=== PATIENT | male | born 1950 | race Caucasian/White ===

== ENCOUNTER 2017-10-31 10:26 | Inpatient (IN) | payer MEDICARE, OTHER ==
[2017-10-31] MEDS ORDERED: ALPRAZolam 0.5 MG TAB PO PRN (10:58)
[2017-10-31] MEDS ORDERED: Diltiazem 125 MG in Sodium Chloride 0.9% 100 ML IVPB SCH (11:00)
[2017-10-31 11:09] VITALS: BMI 34.5
[2017-10-31 11:52] LABS: #Basophils 0.1 thou/uL (0.0-0.2); #Eosinphils 0.4 thou/uL (0.0-0.7); #Lymphocytes 2.4 thou/uL (1.20-3.40); #Monocytes 0.8 thou/uL (0.11-0.59); #Neutrophils 2.9 thou/uL (1.40-6.50); %Basophils 1.2 % (0.0-1.0); %Eosinophils 5.4 % (0.0-10.0); %Lymphocytes 36.3 % (21.0-51.0); %Monocytes 12.6 % (0.0-10.0); %Neutrophils 44.5 % (42.0-75.0); Mean Corpuscular HGB CONC 32.8 g/dL (32.0-36.0); Mean Corpuscular Hemoglobin 29.5 pg (27.0-31.0); Mean Corpuscular Volume 90.2 fl (80.0-94.0); Mean Platelet Volume 7.7 fL (7.4-10.4); Platelet Count 195 thou/uL (130-400); RBC Distribution Width 12.9 % (11.5-14.5); Red Blood Cell (RBC) Count 5.07 mill/uL (4.70-6.10); White Blood Cell (WBC) Count 6.6 thou/uL (4.8-10.8)
[2017-10-31 12:16] LABS: ALT (SGPT) 15 U/L (8-55); AST (SGOT) 18 U/L (5-34); Albumin 4.1 g/dL (3.4-4.8); Alkaline Phosphatase 75 U/L (40-150); Anion Gap 14 mmol/L (10-20); BUN (Urea Nitrogen) 17 mg/dL (8.4-25.7); Bilirubin, Total 0.5 mg/dL (0.2-1.2); Calc. Creatinine Clearance 115 mL/min (70-130); Calcium 9.3 mg/dL (7.8-10.44); Carbon Dioxide 25 mmol/L (23-31); Chloride 108 mmol/L (98-107); Estimated GFR-MDRD 66; Globulin 2.9 g/dL (2.4-3.5); Glucose 98 mg/dL (80-115); Sodium 142 mmol/L (136-145)
[2017-10-31 12:19] LABS: CKMB 0.7 ng/mL (0-6.6); Troponin I 0.014 ng/mL (< 0.028)
[2017-10-31] MEDS: Propafenone HCl 150 MG TAB PO SCH ×2 (15:46→19:32)
[2017-10-31] MEDS: Carvedilol 3.125 MG TAB PO SCH (19:32)
[2017-10-31] MEDS: Pravastatin Sodium 20 MG TAB PO SCH (19:32)
[2017-10-31] MEDS: Apixaban 5 MG TAB PO SCH (19:32)
--- NOTE | 2017-11-01 00:04 | HP ---
HISTORY: Jann Parks is a 66-year-old white male that I initially evaluated in 04/2013. One month prior to that, he had wheezing and increased cough. Chest x -ray was unremarkable. He was placed on a Medrol Dosepak and that apparently improved the situation. He then started to notice episodes of PND, increased dyspnea on exertion, and on the day prior to admission that his heart was beating very rapidly. He had never noticed that before. He came to the emergency room and was found to be in atrial fibrillation with fast ventricular response. Echocardiogram revealed a difficult study. There was severe left ventricular systolic dysfunction with an ejection fraction of 10%-15%, biatrial enlargement, markedly dilated left ventricle, and tricuspid regurgitation. His CK-MB and troponin I were normal. BNP was 756.6. Also, on the monitor, he had complex ventricular ectopy with episodes of ventricular triplets. With his ventricular ectopy, it was felt that an ischemic cardiomyopathy needed to be ruled out. He underwent cardiac catheterization, which revealed severe left ventricular dysfunction with an ejection fraction of 15%-20% and normal coronary arteries. After catheterization, he was restarted on Lovenox and Coumadin. Also, he was loaded with amiodarone. Then, on 05/08/2017, he underwent transesophageal echo, which revealed no intracardiac thrombus. This was followed by electrical cardioversion with 200 joules, returned to normal sinus rhythm. He was then discharged once his INR was greater than 2.0. He continued to remain in normal sinus rhythm and in 08/2013, underwent repeat echo, which revealed ejection fraction of 50%-55%. His digoxin was stopped at that time. He underwent 30-day monitor in 11/2013 with no a fib and the decision was made to stop his Coumadin at that time, but he continued on the amiodarone. In 11/2014, amiodarone was reduced to 1/2 tablet daily. He also started to have muscle and joint pain, and pravastatin was held. This then was restarted at 1/2 of 40 mg tablet. He was found to have low TSH and it was felt that he was hyperthyroid and amiodarone was discontinued. This was in 06/2015. Three weeks later in 07/2015, he had a syncopal episode when he stood up. He was found to be in atrial fibrillation with rapid ventricular response. In the emergency room, he was given Cardizem, Lovenox, digoxin, metoprolol. CT angiogram was performed, which revealed no evidence of pulmonary embolism. He was placed on Multaq and Eliquis. Free T4 was 2.60, free T3 was 5.26, and TSH was less than 0.0025. He was placed on methimazole. He continued to remain hyperthyroid and the decision was made to wait until he was more euthyroid before repeating cardioversion. He returned on 10/06/2015 and underwent transesophageal echo, which revealed no evidence of intracardiac thrombus. Previous echo had shown ejection fraction of 55%-60%. With 200 joules, he returned to sinus rhythm. He was discharged later that same day on propafenone 150 t.i.d. He was switched to this due to development of dizziness with the Multaq. In 11/2015, he returned for followup and continued to be in normal sinus rhythm. He states that he had increased energy once he returned to sinus rhythm. Digoxin was then stopped at that time. His TSH was somewhat elevated. Methimazole dose was reduced to 5 mg daily. Methimazole dose was reduced to 1 /2 tablet daily and then discontinued and he has continued to remain euthyroid since that time. In October and in May 2017, he returned for followup, continued to be in sinus rhythm. He now returns stating that atrial fibrillation probably began on 10/27/2017. He can feel his heart beating rapidly. EKG in the office revealed atrial fibrillation with a rate of 130 per minute. It was felt that he needed to be admitted, anticoagulated, and propafenone dose increased and after loading with increased dose of propafenone to undergo repeat cardioversion. We also discussed that he may need ablation. He is not a candidate for amiodarone due to development of hyperthyroidism on amiodarone in the past. He agrees to admission. PAST MEDICAL HISTORY: Normal coronary arteries in 04/2016, nonischemic cardiomyopathy with ejection fraction of 10%-15%, ultimately increasing to 55%- 60%; he has undergone atrial fibrillation cardioversion in 04/2013 and in 2015; hypertension; hypercholesterolemia; dizziness with Multaq. OPERATIONS: Lumbar laminectomy. MEDICATIONS: Alprazolam 0.5 mg p.r.n., carvedilol 3.125 b.i.d., Eliquis 5 mg b.i.d., furosemide 40 mg q.a.m., lisinopril 10 mg q.a.m., loratadine 10 mg daily , multivitamin daily, KCl 10 mEq daily, pravastatin 20 at bedtime, propafenone 150 t.i.d. ALLERGIES: MULTAQ causes dizziness and AMIODARONE caused hyperthyroidism. SOCIAL HISTORY: He does not smoke. He occasionally has a beer. He is retired , working for [employer] in the past. FAMILY HISTORY: Mother of congestive heart failure. Father had a stroke. No family history of coronary artery disease. REVIEW OF SYSTEMS: Twelve-point review of systems is otherwise unremarkable. PHYSICAL EXAMINATION: VITAL SIGNS: 129/69, pulse of 80 and irregularly irregular with episodes of tachycardia. HEENT: PERRL. NECK: Supple. CHEST: Clear. CARDIAC: S1 and S2 are normal without any S3, S4, or murmurs. ABDOMEN: Normal bowel sounds without tenderness or organomegaly. EXTREMITIES: Revealed no clubbing, cyanosis, or edema. NEUROLOGIC: Grossly intact. SKIN: Warm and dry. LABORATORY DATA: EKG reveals atrial fibrillation with fast ventricular response of 130 per minute. Blood work is pending. IMPRESSION: 1. Recurrence of atrial fibrillation, probably on 10/27/2017. 2. History of previous electrical cardioversions in 04/2013 and 09/2015. 3. History of hyperthyroidism with amiodarone. 4. Dizziness with Multaq. 5. Nonischemic cardiomyopathy with ejection fraction improving from 10%-15% to 50%-55%. 6. Hypertension. 7. Hypercholesterolemia. PLAN: Mr. Parks will be admitted and will be placed on Eliquis 5 mg b.i.d. and propafenone dose will be increased to 225 mg t.i.d. After loading with this, consideration will be given to transesophageal echo and repeat electrical cardioversion. Echo will be repeated to reassess LV function. He certainly may require ablation in the future. MTDD
[2017-11-01] MEDS: Carvedilol 3.125 MG TAB PO SCH (06:19)
[2017-11-01] MEDS: Propafenone HCl 150 MG TAB PO SCH ×2 (06:19→20:19)
[2017-11-01] MEDS: Multivit, Therapeutic 1 TAB PO SCH (09:09)
[2017-11-01] MEDS: Furosemide 40 MG TAB PO SCH (09:09)
[2017-11-01] MEDS: Lisinopril 10 MG TAB PO SCH (09:09)
[2017-11-01] MEDS: Potassium Chloride 10 MEQ TAB PO SCH (09:09)
[2017-11-01] MEDS: Apixaban 5 MG TAB PO SCH ×2 (09:09→20:19)
[2017-11-01] MEDS ORDERED: Diltiazem 125 MG in Sodium Chloride 0.9% 100 ML IVPB PRN (19:15)
[2017-11-01] MEDS: Pravastatin Sodium 20 MG TAB PO SCH (20:19)
[2017-11-01] MEDS: Carvedilol 6.25 MG TAB PO SCH (20:19)
[2017-11-02] MEDS: Propafenone HCl 150 MG TAB PO SCH ×2 (05:28→18:33)
--- NOTE | 2017-11-02 08:16 | PDOC.CTH ---
<DamienherminioMaribell - Last Filed: 11/02/17 08:13> Cardiology Progress Note - Subjective EP progress note: Patient seen and evaluated. No new cardiac concerns or complaints. Remains NPO for DCCV today. No heart racing, palpitations, or dizziness. Briefly on IV cardizem gtt overnight, now off. - Objective Vital Signs Temp Pulse Resp BP Pulse Ox 11/02/17 07:16 97.0 F L 74 17 140/71 97 11/02/17 04:00 97.5 F L 72 18 110/69 98 Weight 269 lb 11.2 oz 11/01/17 11/02/17 11/03/17 06:59 06:59 06:59 Intake Total 630 1080 Output Total 600 2650 Balance 30 -1570 - Physical Examination General/Neuro: alert & oriented x3, NAD Neck: carotid US brisk, no JVD present Lungs: CTA, unlabored respirations Heart: RRR Abdomen: no HSM, NT/ND, soft - Telemetry Telemetry Rhythm: Atypical flu vs coarse AF - Labs Result Diagrams: 10/31/17 11:43 10/31/17 11:43 Troponin/CKMB CK-MB (CK-2) 0.7 ng/mL (0-6.6) 10/31/17 11:43 Troponin I 0.014 ng/mL (< 0.028) 10/31/17 11:43 - Assessment/Plan 1. Atrial fibrillation vs atypical flutter with RVR, rates now controlled. Off cardizem gtt. Increased coreg to 6.25mg BID and resumed propafenone. No missed doses of Eliquis. Discussed PVAI, which will be scheduled as an outpatient. 2. CHADS-VASC of 2 for history of heart failure and hypertension. Continue oral anticoagulation on Eliquis. Anticipate discharge after cardioversion today. Will schedule for PVAI as oupatient. <Micky Felix - Last Filed: 11/02/17 17:00> Cardiology Progress Note - Objective Vital Signs Temp Pulse Resp BP BP Pulse Ox 11/02/17 12:00 97.2 F L 72 18 148/74 H 99 11/02/17 11:23 142/76 H 11/02/17 07:16 97.0 F L 74 17 140/71 97 Weight 269 lb 11.2 oz 11/01/17 11/02/17 11/03/17 06:59 06:59 06:59 Intake Total 630 1080 Output Total 600 2650 Balance 30 -1570 - Labs Result Diagrams: 10/31/17 11:43 10/31/17 11:43 Troponin/CKMB CK-MB (CK-2) 0.7 ng/mL (0-6.6) 10/31/17 11:43 Troponin I 0.014 ng/mL (< 0.028) 10/31/17 11:43 Attending Addendum - Attending Addendum Date/Time: 11/02/17 1700 I personally evaluated the patient and discussed the management with Ms. Quezadaherminio. I agree with the History, Examination, Assessment and Plan documented above with any addition or exceptions noted below.
--- NOTE | 2017-11-02 09:13 | CON ---
DATE OF CONSULTATION: 11/01/2017 REFERRING PHYSICIAN: Dr. Armando Valdes REASON FOR CONSULTATION: Drug refractory atrial fibrillation. CHIEF COMPLAINT: Atrial fibrillation with RVR. HISTORY OF PRESENT ILLNESS: Mr. Parks is a very pleasant 66-year-old male who has been a longstandin g patient of Dr. Valdes's for atrial fibrillation. He was originally diagnosed with atrial fibrill ation in 04/2013 when he presented to the emergency room. At that time, he was also found to have se ana left ventricular systolic dysfunction with an EF of 10-15%, biatrial enlargement, dilated left v entricle, as well as tricuspid regurgitation. He underwent left heart catheterization to rule out is chemic cardiomyopathy and normal coronary arteries were found. At that time, he was placed on warfar in and amiodarone. A repeat echocardiogram in 08/2013 revealed a recovered ejection fraction of 50-5 5%. He then wore a 30-day monitor which did not reveal any atrial fibrillation and he was taken off warfarin and amiodarone was reduced. In 06/2015 it was found that his TSH was extremely low and he w as taken off amiodarone for his hyperthyroidism. The following month, unfortunately, he went back in to atrial fibrillation with RVR and was placed on Multaq and Eliquis at that time. His TSH was negli gible at 0.0025 at that time and cardioversion was postponed until he was more euthyroid. A cardiove rsion with CYNTHIA was performed in 09/2015 and he successfully converted to sinus rhythm. However, he w as not tolerating the Multaq very well and was having a substantial dizziness while on this medicatio n. He was changed to propafenone 150 mg t.i.d. Propafenone has helped him in sinus rhythm successfu lly for some time; however, unfortunately he feels that on 10/27/2017 of this year, he went back into atrial fibrillation. He went to Dr. Valdes's office on the and was found to be in atrial fib rillation, RVR with heart rates in the 130 range. He was sent to the hospital, at which point we janay e consulted. Today Mr. Parks feels well, but his heart rates continue to sustain well above 100. His propafenone was stopped. Although he does not experience significant heart racing or palpitations he is largely asymptomatic with his elevated heart rate. Even with minimal activity or walking to the restroom his heart rate will spike upwards of 170 beats per minute. He is tolerating Eliquis well for stroke pro phylaxis. He denies any chest pain, pressure, syncope or near syncope. He has not had any stroke or stroke like symptoms. Denies any swelling of the extremities or progressive heart failure symptoms. REVIEW OF SYSTEMS: Twelve point review of systems was conducted and is negative except that listed a terrie in the HPI. PAST MEDICAL HISTORY: 1. History of nonischemic cardiomyopathy with a previously reduced EF of 10-15% since recovered to 5 5-60%. 2. Hypertension. 3. Hypercholesterolemia. 4. Atrial fibrillation with 2 prior cardioversions, limited antiarrhythmic options. 5. Hyperthyroidism, in the setting of amiodarone therapy. 6. Lumbar fusion and laminectomy. ALLERGIES: No true drug allergies; however, side effects of dizziness from Multaq and complication o f hyperthyroidism from amiodarone. HOME MEDICATIONS: Alprazolam 0.5 mg as needed, carvedilol 3.125 mg b.i.d., Eliquis 5 mg b.i.d., furo semide 40 mg q.a.m., lisinopril 10 mg q.a.m., loratadine 10 mg daily, multivitamin daily, potassium c hloride 10 mEq daily, pravastatin 20 mg at bedtime, propafenone 150 mg t.i.d. SOCIAL HISTORY: Negative for tobacco use or illicit drug use. Positive for the occasional alcoholic beverage. He is retired from [employer]. FAMILY HISTORY: Mother positive for congestive heart failure. Father positive for cerebrovascular a ccident, negative for early onset of coronary artery disease or sudden cardiac . PHYSICAL EXAMINATION: VITAL SIGNS: Temperature 98.1 degrees Fahrenheit, pulse 110, respirations 18, oxygen saturation 99% on room air, blood pressure 156/84. GENERAL: This is a well-appearing, well-groomed and well-nourished male in no acute distre ss. He is alert and oriented. HEENT: Speech is clear. His affect is appropriate. Normocephalic, atraumatic. Sclerae are anicter ic. EOMs are intact. NECK: Supple without jugular venous distention. Carotids without bruit. CARDIOVASCULAR: Heart rate is regular, but rapid. No significant murmurs, rubs or gallops. His PMI is nonpalpable. EXTREMITIES: Extremities are warm and dry to touch without clubbing, cyanosis or edema. LUNGS: Clear to auscultation bilaterally without wheezes, crackles or rhonchi. ABDOMEN: Soft and nontender without palpable masses and there are positive bowel sounds noted throug hout. NEUROLOGIC: Grossly intact and nonfocal and gait was not assessed. DATABASE: Review of telemetry and EKG reveals what is likely an atypical flutter versus coarse atria l fibrillation sustaining at rates between 110 and 130 beats per minute. LABORATORY DATA: WBC 6.6, hemoglobin 15, hematocrit 45.7, platelet count 195. Chemistry: Sodium 14 2, potassium 5.0, chloride 108, carbon dioxide 25, BUN is 17, creatinine 1.12. TSH is 2.06. Echocardiogram on 11/01/2017, LV size mildly increased, moderately depressed LV systolic function wit h an EF 35-40%, left atrium mildly dilated. Moderate mitral regurgitation, mild aortic regurgitation , mild tricuspid regurgitation. ASSESSMENT AND PLAN: 1. Recurrent atrial arrhythmias refractory to multiple antiarrhythmic medications as well as cardiov ersion. Currently with rapid ventricular response despite propafenone. 2. Two prior cardioversions in 04/2013 and 09/2015. 3. History of hyperthyroidism in conjunction with amiodarone therapy. 4. Intolerance of Multaq with moderately severe dizziness. 5. Nonischemic cardiomyopathy, EF initially at 10-15% and then recovered 50-55% currently 35-40%. 6. Hypertension. 7. Elevated CHADS VASc score on Eliquis for stroke prophylaxis. PLAN: A long discussion was had with Mr. Parks and his regarding additional treatment options f or atrial fibrillation including pulmonary venous antrum isolation. This is a very reasonable option given the patient has been refractory to multiple antiarrhythmic treatments and limited options when it comes to these medications given his history of hyperthyroidism and intolerance of Multaq. We di scussed rate control versus continued antiarrhythmic therapy and attempting cardioversion prior to jean torres. At this point, the patient will resume propafenone and I will increase his carvedilol to im prove rate control and will attempt a cardioversion tomorrow prior to discharge. We will see him zander k as an outpatient to further discuss PVI however, he will be scheduled in the near future for ablati on. Thank you for allowing us to participate in the care of the patient.
[2017-11-02] MEDS: Carvedilol 6.25 MG TAB PO SCH (11:23)
[2017-11-02] MEDS: Lisinopril 10 MG TAB PO SCH (11:23)
--- NOTE | 2017-11-02 14:51 | PQF ---
CLINICAL DOCUMENTATION IMPROVEMENT CLARIFICATION FORM: ICD-10 Updated PLEASE DO AN ADDENDUM TO THE PROGRESS NOTE WITH ANY DOCUMENTATION UPDATES OR ADDITIONS AND CARRY THROUGH TO DC SUMMARY. THANK YOU. DATE: 11/02/17 ATTN: Shikha MAYES NP Please exercise your independent, professional judgment in responding to the clarification form. Clinical indicators are provided on the bottom of this form for your review Please check appropriate box(s): HEART FAILURE: A. TYPE: [ x ] Systolic / HFrEF [ ] Diastolic / HFpEF [ ] Combined Systolic / Diastolic B. ACUITY [ ] Acute [ ] Acute on Chronic [ ] Chronic [ x ] Other diagnosis history of non ischemic cardiomyopathy with recovered EF [ ] Unable to determine In addition, please specify: Present on Admission (POA): [ x ] Yes [ ] No [ ] Unable to determine For continuity of documentation, please document condition throughout progress notes and discharge summary. Thank You. CLINICAL INDICATORS - SIGNS / SYMPTOMS / LABS CARDIOLOGY PROGRESS NOTE 11/02: "CHADS-VASC OF 2 FOR HISTORY OF HEART FAILURE AND HYPERTENSION" RISKS: HYPERTENSION AFIB TREATMENT: LASIX (11/01-PRESENT) COREG (11/01/17) LISINOPRIL 11/01-PRESENT) TELEMETRY MONITORING (This form is maintained as a part of the permanent medical record) 2014 [employer]. All Rights Reserved [email or web address] Office: [phone] FESTUS
[2017-11-02] MEDS ORDERED: PROPOFOL 20 ML ONE (15:19)
[2017-11-02] MEDS ORDERED: PROPOFOL 200 MG/20 ML VIAL ONE (15:55)
[2017-11-02] MEDS ORDERED: Lidocaine 1% PF 5 ML VIAL ONE (15:55)
[2017-11-02] MEDS ORDERED: Hydrocortisone 1% Cream 30 GM TUBE ONE (16:47)
[2017-11-02] MEDS ORDERED: Acetaminophen 325 MG TAB PO PRN (17:22)
[2017-11-02] MEDS ORDERED: ALPRAZolam 0.5 MG TAB PO PRN (17:23)
[2017-11-02 17:24] VITALS: TEMP 97.4
[2017-11-02] MEDS ORDERED: Furosemide 40 MG TAB PO PRN (17:25)
[2017-11-02] MEDS: Apixaban 5 MG TAB PO SCH (18:30)
[2017-11-02] MEDS: Furosemide 40 MG TAB PO SCH (18:30)
[2017-11-02] MEDS: Multivit, Therapeutic 1 TAB PO SCH (18:30)
[2017-11-02] MEDS: Potassium Chloride 10 MEQ TAB PO SCH (18:30)
[2017-11-02 19:14] VITALS: BP 139/74
[2017-11-02] MEDS ORDERED: Carvedilol 3.125 MG TAB PO SCH (21:00)
[2017-11-02] MEDS ORDERED: Propafenone HCl 150 MG TAB PO SCH (21:00)
--- NOTE | 2017-11-02 22:20 | OP ---
DATE OF PROCEDURE: 11/02/2017 CARDIOVERSION REPORT REFERRING PHYSICIAN: Armando Valdes M.D. REASON FOR PROCEDURE: Mr. Parks is a 66-year-old male with a prior history of persistent atrial fibrillation with prior history of cardioversion and propafenone use. He underwent a cardioversion in the past. He though developed persistent atrial fibrillation, loaded with continue propafenone. He is considered for future pulmonary venous isolation procedure if our attempt with cardioversion restored sinus rhythm in the interim. The patient has been adequately anticoagulated with oral anticoagulants without a break. PROCEDURE: The patient received propofol per Anesthesia specialist for deep sedation. After adequate level of sedation achieved, a synchronized 100 joule and then a 200 joule shock failed to convert him back to sinus rhythm. Following that, a 360 joule shock was delivered, synchronized, which promptly converted him back to sinus rhythm. CONCLUSION: Successful cardioversion. PLAN: Continue propafenone for now and anticoagulation. Plan for outpatient PVAI ablation will be made. FESTUS
--- NOTE | 2017-11-03 01:06 | DIS ---
DISCHARGE DIAGNOSES: 1. Recurrence of atrial fibrillation, probably on 10/27/2017. 2. Status post cardioversion in 04/2013 and 09/2015. 3. Electrical cardioversion back to sinus rhythm by Dr. Felix. 4. History of hyperthyroidism with amiodarone. 5. Dizziness with Multaq. 6. Ejection fraction of 10%-15% initially, which improved to 55%-60% and now is 35%-40%. 7. Hypertension. 8. Hypercholesterolemia. 9. Normal coronary arteries in 04/2013. DISCHARGE MEDICATIONS: Acetaminophen 650 q.4 hours p.r.n., alprazolam 0.5 mg p.r.n., Eliquis 5 mg b. i.d., carvedilol 3.125 b.i.d., furosemide 40 mg daily, lisinopril 10 mg daily, multivitamin 1 daily, KCl 10 mEq daily, pravastatin 20 mg at bedtime, propafenone 150 mg q.i.d. DISCHARGE DISPOSITION: Arrangements will be made by Dr. Felix for outpatient pulmonary artery ablatio n for his atrial fibrillation. HOSPITAL COURSE: Mr. Parks came to the office on 10/31/2017 stating that he felt that his heart was racing since 10/27/2017. He was found to be in atrial fibrillation with fast ventricular response. He was admitted and his carvedilol dose was increased from 3.125 b.i.d. to 6.25 b.i.d. for better rat e control. Also, intermittently he received intravenous Cardizem drip. He underwent echocardiograph y, which revealed the study to be technically difficult. There was mild left ventricular enlargement , moderate left ventricular dysfunction with ejection fraction of 35%-40%, mild left atrial enlargeme nt, moderate mitral regurgitation, mild aortic regurgitation, and mild tricuspid regurgitation. With the fall in his ejection fraction, it was felt that propafenone at a higher dose long-term would not be better and he was seen by Dr. Felix for possible radiofrequency ablation. Dr. Felix did take him f or electrical cardioversion and once he was back in sinus rhythm, his carvedilol dose was reduced zander k to 3.125 b.i.d. Also, Dr. Felix wanted to increase propafenone to 150 mg q.i.d.
== END 2017-11-02 19:14 | disposition home or self-care (01) | DRG 309 ==
LOC: 2NO 10:26
PROVIDERS: ADMIT Internal Medicine Cardiovascular Disease; ATTEND Internal Medicine Cardiovascular Disease
PROC: 5A2204Z Restoration of Cardiac Rhythm, Single (ICD-10-PCS; principal; 2017-11-02)
DX: I48.1 Persistent atrial fibrillation (principal); I50.22 Chronic systolic (congestive) heart failure; I42.8 Other cardiomyopathies; I11.0 Hypertensive heart disease with heart failure; E78.5 Hyperlipidemia, unspecified; Z79.899 Other long term (current) drug therapy; Z79.01 Long term (current) use of anticoagulants; Z88.8 Allergy status to other drugs, medicaments and biological substances; E03.9 Hypothyroidism, unspecified
CPT/HCPCS: 36415; 80053; 82553; 84443; 84484; 85025; 92960; 93306; A4216; J2001; J2704; J7050

== ENCOUNTER 2017-11-09 11:08 | Outpatient (CLI) | payer MEDICARE, OTHER ==
[2017-11-09 12:25] LABS: Hemoglobin 14.9 g/dL (14.0-18.0); Mean Corpuscular HGB CONC 33.9 g/dL (32.0-36.0); Mean Corpuscular Hemoglobin 30.1 pg (27.0-31.0); Mean Corpuscular Volume 88.9 fl (80.0-94.0); Mean Platelet Volume 8.3 fL (7.4-10.4); Platelet Count 199 thou/uL (130-400); RBC Distribution Width 12.6 % (11.5-14.5); Red Blood Cell (RBC) Count 4.93 mill/uL (4.70-6.10); White Blood Cell (WBC) Count 6.5 thou/uL (4.8-10.8)
[2017-11-09 12:29] LABS: INR-International Normal Ratio 1.2; Prothrombin Time 15.7 SEC (12.0-14.7)
[2017-11-09 12:30] LABS: PTT 32.2 SEC (22.9-36.1)
[2017-11-09 13:02] LABS: Anion Gap 13 mmol/L (10-20); BUN (Urea Nitrogen) 20 mg/dL (8.4-25.7); Calc. Creatinine Clearance 0 mL/min (70-130); Calcium 9.7 mg/dL (7.8-10.44); Carbon Dioxide 25 mmol/L (23-31); Chloride 104 mmol/L (98-107); Estimated GFR-MDRD 65; Glucose 91 mg/dL (80-115); Potassium 4.8 mmol/L (3.5-5.1); Sodium 137 mmol/L (136-145)
--- NOTE | 2017-11-09 16:48 | EKG ---
Test Reason : Blood Pressure : / mmHG Vent. Rate : 054 BPM Atrial Rate : 054 BPM P-R Int : 200 ms QRS Dur : 108 ms QT Int : 424 ms P-R-T Axes : 057 -11 009 degrees QTc Int : 402 ms Sinus bradycardia Minimal voltage criteria for LVH, may be normal variant Borderline ECG When compared with ECG of 08-NOV-2016 03:07, Sinus rhythm has replaced Junctional rhythm Confirmed by DR. Braydon MARTIN ([id number]) on 11/09/2017 4:48:16 PM Referred By: ROSA Confirmed By:DR. Braydon MARTIN
== END 2017-11-09 11:09 | disposition home or self-care (01) ==
LOC: LABBT 11:08
PROVIDERS: ATTEND Internal Medicine Cardiovascular Disease
DX: Z01.818 Encounter for other preprocedural examination (principal); I48.91 Unspecified atrial fibrillation
CPT/HCPCS: 80048; 85027; 85610; 85730; 93005; 93010

== ENCOUNTER 2017-11-16 08:23 | Outpatient (CLI) | payer MEDICARE, OTHER ==
[2017-11-16] MEDS ORDERED: ISOVUE-370 76%-LOCM 1 ML ONE (13:08)
== END 2017-11-16 08:24 | disposition home or self-care (01) ==
LOC: BICCT 08:23
PROVIDERS: ATTEND Internal Medicine Cardiovascular Disease
DX: I48.91 Unspecified atrial fibrillation (principal)
CPT/HCPCS: 71275

== ENCOUNTER 2017-11-19 05:46 | Observation (INO) | payer MEDICARE, OTHER ==
[2017-11-19] MEDS ORDERED: Lidocaine 1% (PF) 30 ML VIAL ONE (06:55)
[2017-11-19] MEDS ORDERED: Heparin 10,000 UNITS/1 ML VIAL ONE ×3 (06:55→10:53)
[2017-11-19] MEDS ORDERED: Promethazine HCl 25 MG/ML VIAL ONE (07:09)
[2017-11-19] MEDS ORDERED: Phenylephrine HCL 10 MG/ML VIAL ONE (07:09)
[2017-11-19] MEDS ORDERED: Ondansetron HCl/PF 4 MG/2 ML Vial ONE ×2 (07:09→11:39)
[2017-11-19] MEDS ORDERED: Ondansetron HCl/PF 4 MG/2 ML Vial IVP PRN ×2 (07:22→13:50)
[2017-11-19] MEDS ORDERED: Fentanyl 100 MCG/2 ML VIAL ONE ×3 (08:06→14:59)
[2017-11-19] MEDS ORDERED: Heparin 25,000 units/D5W 500 ML ONE (08:55)
[2017-11-19] MEDS ORDERED: Protamine Sulfate 50 MG/5 ML VIAL ONE (08:56)
[2017-11-19] MEDS ORDERED: Furosemide 40 MG/4 ML VIAL ONE (08:56)
[2017-11-19] MEDS ORDERED: Isoproterenol 0.2 MG/1 ML AMP ONE (10:53)
[2017-11-19] MEDS ORDERED: Dexamethasone 20 MG/5 ML VIAL ONE (11:39)
[2017-11-19] MEDS ORDERED: Heparin 30,000 units/30 ml VIAL ONE (11:39)
[2017-11-19] MEDS ORDERED: PROPOFOL 200 MG/20 ML VIAL ONE (11:39)
[2017-11-19] MEDS ORDERED: Glycopyrrolate 0.2 MG/ML 5 ML SYRINGE ONE (11:39)
[2017-11-19] MEDS ORDERED: PHENYLEPHRINE-NS 100 MCG/ML 10 ML SYRINGE ONE (11:39)
[2017-11-19] MEDS ORDERED: Atropine Sulfate 1 mg/1 ml Vial ONE (13:08)
[2017-11-19] MEDS ORDERED: Morphine Sulfate 2 MG/ML SYRINGE SLOW IVP PRN (13:50)
[2017-11-19] MEDS ORDERED: Promethazine HCl 25 MG/ML VIAL SLOW IVP PRN (13:50)
--- NOTE | 2017-11-19 14:16 | OP ---
DATE OF PROCEDURE: 11/19/2017 PROCEDURE: Electrophysiology study and radiofrequency ablation. REFERRING PHYSICIAN: Dr. Armando Valdes REASON FOR PROCEDURE: Mr. Parks is a 67-year-old male with history of paroxysmal atrial fibrillation, previously well suppressed with propafenone. More recently recurrent atrial fibrillation/flutter episodes are seen despite continued propofol administration. He also had a history of nonischemic cardiomyopathy, but improving LVEF is seen at 50-55%. worsen again to 35-40%. Here for radiofrequency ablation of atrial fibrillation. PROCEDURE: The patient received propofol per Anesthesia specialist. After adequate level of sedation achieved, the left and right femoral vein areas were prepped and draped and anesthetized using subcutaneous lidocaine and the left and right femoral veins were cannulated x2 each side. Following that, the left femoral vein, an 11 [place] sheath was inserted to allow for introducing an ice intracardiac echo catheter. This was used to monitor the transseptal procedure as well as hemodynamic monitoring afterwards. A Preface sheath was also induced on the left side and dual DECA catheter was inserted in the CS and the right atrial area. Following that, the right-sided venous access a transseptal sheath was introduced which was used to perform a transseptal puncture with ice catheter monitoring and through this a long sheath was placed, eventually the Agilis deflectable catheter was exchanged for this catheter. A second transseptal was also performed and the tracing transseptal was used to introduce the ThermoCool SF ST ablation catheter. Through the Agilis sheath a Pentaray mapping catheter was introduced and a 3-D map of the left atrium was created. Left common ostium was noted. Also IV heparin was started at the time of transseptal which was monitored with periodic ACT checks keeping the ACT over 350 targeted. Following that a left atrial map was performed and a pulmonary venous isolation procedure was performed, isolating all 4 pulmonary veins. Also the posterior was isolated and successful. Following that atrial flutter with cycle length of 3 milliseconds was tracked down to the right roof area and that area was ablated and the tachycardia terminated. Following that, further atrial flutter is seen which appeared to be originating from the left inferoseptal area and over the CS os roof and this area was also ablated and the tachycardia was terminated. At the end of the case, burst atrial pacing still induced atrial fibrillation which was a be eventually cardioverted back to sinus rhythm. Isuprel was administered andpresence of PV and posterior wall isolation was re- confirmed. With fluoroscopy, no change in the cardiac silhouette was noted. Also, the ice catheter was used to check for any effusion and none was found. At this point, catheter was pulled back to the right side. The protamine was administered 50 mg to reverse the IV heparin effect. After adequate ACT achieved, the sheaths were pulled in labor delivery rn. FINDINGS: Baseline cycle length 905 milliseconds, KY 200 milliseconds, QRS 105 , QT 450 milliseconds. Sinus node recovery time 1492 milliseconds, about 585 milliseconds corrected. AV Wenckebach cycle length was found to be 380 milliseconds. A total of 65 lesions were placed with total ablation x48 minutes. CONCLUSION: 1. Successful isolation of the posterior wall and all 4 pulmonary veins. 2. Left common pulmonary veins were seen. 3. Mapping and ablation of an atypical atrial tachycardia originating from the left posterior roof area. 4. Mapping and ablation of an atrial flutter originating from the CS roof area close to the interatrial septum. PLAN: Resume anticoagulation and propafenone short term. Consider weaning propafenone depending on the clinical response. MTDD
[2017-11-19] MEDS ORDERED: Diltiazem HCl 125 MG, Admixture Fee 1 EACH in Sodium Chloride 0.9% 100 ML IVPB PRN (17:40)
[2017-11-19] MEDS ORDERED: Propafenone HCl 150 MG TAB PO SCH (17:45)
[2017-11-19 18:20] VITALS: BMI 33.9
[2017-11-19] MEDS ORDERED: ALPRAZolam 0.5 MG TAB PO PRN (20:53)
[2017-11-19] MEDS ORDERED: Acetaminophen 325 MG TAB PO PRN (20:53)
[2017-11-19] MEDS ORDERED: Furosemide 40 MG TAB PO PRN (20:54)
[2017-11-19] MEDS ORDERED: Pravastatin Sodium 20 MG TAB PO SCH (21:00)
[2017-11-19] MEDS: Apixaban 5 MG TAB PO SCH (21:39)
[2017-11-19] MEDS: Sucralfate 1 GM TAB PO SCH (21:39)
[2017-11-19] MEDS: Propafenone HCl 150 MG TAB PO SCH ×2 (21:40→21:52)
[2017-11-19] MEDS: Carvedilol 3.125 MG TAB PO SCH (21:49)
[2017-11-20] MEDS: Sucralfate 1 GM TAB PO SCH ×2 (07:53→15:03)
[2017-11-20] MEDS: Propafenone HCl 150 MG TAB PO SCH ×4 (07:53→15:05)
[2017-11-20] MEDS: Apixaban 5 MG TAB PO SCH (08:32)
[2017-11-20] MEDS: Carvedilol 3.125 MG TAB PO SCH (08:40)
[2017-11-20] MEDS ORDERED: Potassium Chloride 10 MEQ TAB PO SCH (09:00)
[2017-11-20] MEDS ORDERED: Lisinopril 10 MG TAB PO SCH (09:00)
[2017-11-20] MEDS ORDERED: Multivit, Therapeutic 1 TAB PO SCH (09:00)
[2017-11-20 12:53] VITALS: BP 130/71; TEMP 97.8
[2017-11-20] MEDS ORDERED: Cepastat Lozenges 1 LOZ PO PRN (14:00)
[2017-11-20] MEDS ORDERED: Propafenone HCl 150 MG TAB PO SCH (15:00)
[2017-11-20 15:46] LABS: Bilirubin Negative (Negative); Blood, Urine Moderate (Negative); Clarity CLEAR (Clear); Glucose, Urine (Dipstick) Negative (Negative); Leukocyte Small (Negative); Nitrite Negative (Negative); Protein, Urine (Dipstick) Negative (Neg-Trace); Specific Gravity, Urine 1.012 (1.002-1.036); Urobilinogen 0.2 mg/dL (0.2-1.0)
[2017-11-20 15:48] LABS: Bacteria/HPF None Seen HPF (None Seen); Hyaline Casts/LPF 0-3 HYALINE CAST LPF (0-3 Hyaline); RBC/HPF 21-50 HPF (0-3); Squamous Epithelial None Seen HPF (0-3)
--- NOTE | 2017-11-20 19:46 | PRG ---
DISCHARGE NOTE DATE OF ADMISSION: 11/19/2017 DATE OF DISCHARGE: 11/20/2017 DATE OF PROCEDURE: 11/19/2017 PROCEDURE: Electrophysiology study and radiofrequency ablation. DIAGNOSIS: Drug refractory atrial fibrillation. HISTORY OF PRESENT ILLNESS: Mr. Parks is a 67-year-old male with history of paroxysmal atrial fibrillation, previously suppressed with propafenone. He has failed multiple antiarrhythmic medications in the past and propafenone has worked well until recently when he has required multiple cardioversions. He also has a history of ischemic cardiomyopathy with an improving EF. Currently, worsening EF most recently 35%-40%. He was admitted for an outpatient procedure , pulmonary venous isolation for his atrial fibrillation. This was performed on 11/19/2017 at which point he underwent isolation of all four pulmonary veins. Following that, an atrial flutter was tracked down to the right wrist area which was also ablated and terminated. Additional flutter was found to originate in the left inferior septal area and over the CSOS roof and this area also received ablation and the tachycardia was terminated. The patient eventually required cardioversion to restore sinus rhythm as a burst atrial pacing continued to induce atrial fibrillation. Total RF ablation time was 48 minutes, total 65 lesions placed. The patient had an uncomplicated postoperative recovery, but did have some atrial ectopy and irregular heart rhythms immediately postoperative. His propafenone was continued. PHYSICAL EXAMINATION: Today, he denies any heart racing, palpitations, chest pain or pressure, syncope or syncope, stroke or stroke-like symptoms. He does have some tenderness at his bilateral groin sites, however, is stable without hematoma or bleeding. He denies any positional chest pain and no effusion was found post-ablation. His vital signs have been stable and he has been up ambulating throughout the smith without difficulty. He does report some burning with urination and a urinalysis was sent that was negative for UTI, but did have a small amount of blood, likely related to Hunter trauma and some tugging that had happened that morning. He is currently maintaining sinus rhythm and is stable for discharge. RECOMMENDATIONS: Discharge home today. Continue home medications as before including Rythmol t.i.d. and his oral anticoagulation, Eliquis 5 mg p.o. b.i.d. Discharge medication prescriptions provided, Lasix 40 mg p.o. x3 days, then as needed for shortness of breath, potassium 20 mEq daily x3 days, then only when taking Lasix, Protonix 40 mg daily x1 month, and Carafate 1 gram q.i.d. x2 weeks. Home medications to continue, Tylenol as needed, Xanax 0.5 mg as needed, apixaban 5 mg p.o. b.i.d., carvedilol 3.125 mg b.i.d., Lasix 40 mg as directed for shortness of breath, lisinopril 10 mg p.o. daily, multivitamin daily, potassium chloride 20 mEq as directed, then resume home dose of 10 mEq daily, pravastatin 20 mg p.o. at bedtime, propafenone 150 mg p.o. t.i.d., Carafate 1 g q.i.d. x2 weeks. The patient will followup with [facility] in 4-6 weeks and will be provided with an event monitor for continued postoperative monitoring for the next 6 months. Overall, patient tolerated procedure well and is stable for discharge. MTDD
--- NOTE | 2017-11-21 20:16 | EKG ---
Test Reason : ABLATION Blood Pressure : / mmHG Vent. Rate : 079 BPM Atrial Rate : 110 BPM P-R Int : 000 ms QRS Dur : 102 ms QT Int : 440 ms P-R-T Axes : 000 -14 018 degrees QTc Int : 504 ms Normal sinus rhythm with frequent PACs Prolonged QT Abnormal ECG When compared with ECG of 09-NOV-2017 12:06, Atrial fibrillation has replaced Sinus rhythm QT has lengthened Confirmed by MARCOS MAXWELL (2) on 11/21/2017 8:16:00 PM Referred By: OT Confirmed By:MARCOS MAXWELL
--- NOTE | 2017-11-21 20:17 | EKG ---
Test Reason : Blood Pressure : / mmHG Vent. Rate : 109 BPM Atrial Rate : 153 BPM P-R Int : 000 ms QRS Dur : 098 ms QT Int : 364 ms P-R-T Axes : 000 -06 029 degrees QTc Int : 490 ms Sinus arrhytmia Otherwise normal ECG When compared with ECG of 19-NOV-2017 14:18, (Unconfirmed) Current undetermined rhythm precludes rhythm comparison, needs review Confirmed by MARCOS MAXWELL (2) on 11/21/2017 8:17:16 PM Referred By: ROSA Confirmed By:MARCOS MAXWELL
--- NOTE | 2017-11-21 20:18 | EKG ---
Test Reason : Blood Pressure : / mmHG Vent. Rate : 068 BPM Atrial Rate : 068 BPM P-R Int : 192 ms QRS Dur : 104 ms QT Int : 430 ms P-R-T Axes : 069 -11 010 degrees QTc Int : 457 ms Normal sinus rhythm Normal ECG When compared with ECG of 19-NOV-2017 16:57, (Unconfirmed) Previous ECG has undetermined rhythm, needs review Confirmed by MARCOS MAXWELL (2) on 11/21/2017 8:18:29 PM Referred By: ROSA Confirmed By:MARCOS MAXWELL
== END 2017-11-20 15:57 | disposition home or self-care (01) ==
LOC: CCL 05:46 → 2SW 14:50
PROVIDERS: ADMIT Internal Medicine Cardiovascular Disease; ATTEND Internal Medicine Cardiovascular Disease
PROC: 4A023FZ Measurement of Cardiac Rhythm, Percutaneous Approach (ICD-10-PCS; principal; 2017-11-19)
PROC: 4A0234Z Measurement of Cardiac Electrical Activity, Percutaneous Approach (ICD-10-PCS; 2017-11-19)
PROC: 02583ZZ Destruction of Conduction Mechanism, Percutaneous Approach (ICD-10-PCS; 2017-11-19)
PROC: 02K83ZZ Map Conduction Mechanism, Percutaneous Approach (ICD-10-PCS; 2017-11-19)
DX: I48.0 Paroxysmal atrial fibrillation (principal); I25.5 Ischemic cardiomyopathy; Z79.01 Long term (current) use of anticoagulants; Z79.899 Other long term (current) drug therapy; Z98.890 Other specified postprocedural states
CPT/HCPCS: 76942; 82962; 85347 ×2; 92960; 93005 ×2; 93613; 93623; 93656; C1730; C1731; C1732; C1759; C1769; G0378; 36416; 81003; 81015; 93010; J0461; J1100; J1644; J1940; J2001; J2370; J2405; J2550; J2704; J2720; J3010

== ENCOUNTER 2017-12-05 10:02 | Emergency (ER) | payer MEDICARE, OTHER ==
[2017-12-05] MEDS ORDERED: Diltiazem 125 MG/25 ML ONE (10:50)
[2017-12-05 11:07] LABS: #Basophils 0.1 thou/uL (0.0-0.2); #Eosinphils 0.4 thou/uL (0.0-0.7); #Monocytes 0.7 thou/uL (0.11-0.59); #Neutrophils 3.2 thou/uL (1.40-6.50); %Basophils 1.1 % (0.0-1.0); %Eosinophils 5.7 % (0.0-10.0); %Lymphocytes 32.3 % (21.0-51.0); %Monocytes 10.4 % (0.0-10.0); %Neutrophils 50.5 % (42.0-75.0); Hemoglobin 15.8 g/dL (14.0-18.0); Mean Corpuscular HGB CONC 33.8 g/dL (32.0-36.0); Mean Corpuscular Hemoglobin 29.9 pg (27.0-31.0); Mean Corpuscular Volume 88.5 fl (80.0-94.0); Mean Platelet Volume 7.7 fL (7.4-10.4); Platelet Count 199 thou/uL (130-400); RBC Distribution Width 12.9 % (11.5-14.5); Red Blood Cell (RBC) Count 5.27 mill/uL (4.70-6.10); White Blood Cell (WBC) Count 6.2 thou/uL (4.8-10.8)
[2017-12-05 11:21] LABS: Anion Gap 11 mmol/L (10-20); BUN (Urea Nitrogen) 17 mg/dL (8.4-25.7); Calc. Creatinine Clearance 0 mL/min (70-130); Calcium 9.5 mg/dL (7.8-10.44); Carbon Dioxide 23 mmol/L (23-31); Chloride 109 mmol/L (98-107); Estimated GFR-MDRD 75; Glucose 133 mg/dL (80-115); Magnesium 2.3 mg/dL (1.6-2.6); Potassium 3.8 mmol/L (3.5-5.1); Sodium 139 mmol/L (136-145)
== END 2017-12-05 13:50 | disposition home or self-care (01) ==
LOC: ERS 10:02
DX: I48.91 Unspecified atrial fibrillation (principal); I11.0 Hypertensive heart disease with heart failure; I50.9 Heart failure, unspecified; Z79.899 Other long term (current) drug therapy
CPT/HCPCS: 80048; 83735; 85025; 93005; 96374

== ENCOUNTER 2017-12-06 22:11 | Observation (INO) | payer MEDICARE, OTHER ==
--- NOTE | 2017-12-06 22:41 | RAD ---
SINGLE VIEW OF THE CHEST: 12/06/17 COMPARISON: 11/08/16. HISTORY: Rapid heart rate. FINDINGS: Single view of the chest shows a normal sized cardiomediastinal silhouette. There is no evidence of c onsolidation, mass, or pleural effusion. The bones are unremarkable. IMPRESSION: No evidence of acute cardiopulmonary disease. POS: [facility]
[2017-12-06 23:04] LABS: #Basophils 0.1 thou/uL (0.0-0.2); #Eosinphils 0.3 thou/uL (0.0-0.7); #Lymphocytes 3.4 thou/uL (1.20-3.40); #Monocytes 0.7 thou/uL (0.11-0.59); #Neutrophils 3.2 thou/uL (1.40-6.50); %Eosinophils 4.4 % (0.0-10.0); %Lymphocytes 43.9 % (21.0-51.0); %Monocytes 9.2 % (0.0-10.0); %Neutrophils 41.5 % (42.0-75.0); Mean Corpuscular HGB CONC 33.5 g/dL (32.0-36.0); Mean Corpuscular Volume 89.6 fl (80.0-94.0); Mean Platelet Volume 7.8 fL (7.4-10.4); Platelet Count 200 thou/uL (130-400); RBC Distribution Width 12.9 % (11.5-14.5); Red Blood Cell (RBC) Count 4.99 mill/uL (4.70-6.10); White Blood Cell (WBC) Count 7.6 thou/uL (4.8-10.8)
[2017-12-06 23:09] LABS: ALT (SGPT) 19 U/L (8-55); AST (SGOT) 20 U/L (5-34); Albumin 4.2 g/dL (3.4-4.8); Alkaline Phosphatase 88 U/L (40-150); Anion Gap 13 mmol/L (10-20); BUN (Urea Nitrogen) 17 mg/dL (8.4-25.7); Bilirubin, Total 0.4 mg/dL (0.2-1.2); Calc. Creatinine Clearance 0 mL/min (70-130); Calcium 9.4 mg/dL (7.8-10.44); Carbon Dioxide 22 mmol/L (23-31); Chloride 110 mmol/L (98-107); Estimated GFR-MDRD 65; Globulin 3.1 g/dL (2.4-3.5); Glucose 133 mg/dL (80-115); Potassium 3.9 mmol/L (3.5-5.1); Protein, Total 7.3 g/dL (5.8-8.1); Sodium 141 mmol/L (136-145)
[2017-12-06 23:15] LABS: CKMB 0.6 ng/mL (0-6.6); Troponin I Less than 0.010 ng/mL (< 0.028)
[2017-12-06] MEDS ORDERED: Acetaminophen 325 MG TAB PO PRN (23:32)
[2017-12-06] MEDS ORDERED: Milk Of Magnesia 30 ML UDCUP PO PRN (23:32)
--- NOTE | 2017-12-07 01:10 | HP ---
PRESENTING COMPLAINTS: Fast heart rates. HISTORY OF PRESENT ILLNESS: Mr. Jann Parks is a 67-year-old male with a past medical history of nonischemic cardiomyopathy with EF of 55-60%, drug-refractory atrial fibrillation, on propafenone; hypothyroidism; hypertension; and hyperlipidemia, who presents to the emergency room with history of heart palpitations "clamminess" and dizziness. The patient reports that he checked his mobile EKG and found he was in atrial fibrillation with heart rates in the 150s, which made him present to the emergency room. He was in the emergency room yesterday for similar complaints and he was given diltiazem with resolution and sent home. At the emergency room, EKG showed atrial fibrillation, heart rate was in the 120s to the 130s, was given 1 dose of 50 mg IV diltiazem, which returned to normal sinus rhythm and heart rate in the 70s; however, due to patient's history of drug-refractive atrial fibrillation and in fact that he was in the emergency room late yesterday with similar complaints. He was deemed fit to be admitted overnight and to be reviewed by Cardiology in the morning. PAST MEDICAL HISTORY: As stated in the HPI. PAST SURGICAL HISTORY: Status post ablation and spinal fusion. FAMILY HISTORY: Reviewed and noncontributory. SOCIAL HISTORY: Does not drink alcohol, smoke cigarettes, or use illicit drugs. ALLERGIES: AMIODARONE. CODE STATUS: FULL CODE. HOME MEDICATIONS: Acetaminophen 650 mg q.4. hours p.r.n., alprazolam 0.5 mg daily p.r.n., apixaban 5 mg b.i.d., carvedilol 3.125 mg b.i.d., furosemide 4 mg p.o. as directed p.r.n., lisinopril 10 mg daily, multivitamins 1 tablet daily, pantoprazole 40 mg daily, potassium chloride 20 mEq daily, pravastatin 20 mg at bedtime, propafenone 150 mg t.i.d., sucralfate 1 gram p.o. b.i.d. PHYSICAL EXAMINATION: VITAL SIGNS: Blood pressure 120/75. Other vital signs are within normal limits with heart rate of 72. GENERAL: Not in acute distress. He is lying comfortably in bed. NECK: Supple, full range of movement. No JVD. HEENT: Normocephalic, atraumatic. Not pale, anicteric. PERRLA, EOMI. Moist mucous membranes. CARDIOVASCULAR: Regular rate and rhythm, S1 and S2 only. No murmurs, rubs, or gallops. RESPIRATORY: Vesicular breath sounds bilaterally. No wheezes or rales. ABDOMEN: Soft, nontender, nondistended. No hepatosplenomegaly. Bowel sounds normoactive. NEUROLOGIC: Alert and well oriented to time, place, and person. No focal deficits. PSYCHIATRIC: Normal mood and affect. SKIN: Warm, dry, well-perfused. No rashes or lesions. MUSCULOSKELETAL: No edema. LABORATORY DATA: CBC and electrolytes are unremarkable, CMP as well. Initial troponin less than 0.010. IMAGING: Chest x-ray showed no acute cardiopulmonary abnormalities. ASSESSMENT AND PLAN: 1. Atrial fibrillation with rapid ventricular rate: The patient has a history of drug-refractory atrial fibrillation and he is status post 2 cardioversions and ablation. He has responded to one dose of IV diltiazem. He will be admitted to telemetry, vital signs monitored. In addition, IV diltiazem p.r.n. for heart rate greater than 125. Cardiology will be consulted. Obtain a TSH in the morning. Continue Eliquis. 2. Hypertension: He is currently at goal. We will resume his home medications once they have been confirmed. 3. Hyperparathyroidism: This is secondary to amiodarone use for atrial fibrillation. We will check a TSH as well as free T4. 4. Hyperlipidemia: Continue statin. CODE STATUS: FULL CODE. Deep venous thrombosis prophylaxis: Eliquis. MTDD
[2017-12-07 01:53] LABS: Troponin I 0.014 ng/mL (< 0.028)
[2017-12-07 04:21] LABS: #Basophils 0.1 thou/uL (0.0-0.2); #Eosinphils 0.3 thou/uL (0.0-0.7); #Lymphocytes 3.3 thou/uL (1.20-3.40); #Monocytes 0.7 thou/uL (0.11-0.59); #Neutrophils 3.9 thou/uL (1.40-6.50); %Basophils 0.8 % (0.0-1.0); %Eosinophils 3.9 % (0.0-10.0); %Lymphocytes 40.2 % (21.0-51.0); %Monocytes 8.7 % (0.0-10.0); %Neutrophils 46.3 % (42.0-75.0); Mean Corpuscular HGB CONC 33.2 g/dL (32.0-36.0); Mean Corpuscular Hemoglobin 29.7 pg (27.0-31.0); Mean Corpuscular Volume 89.3 fl (80.0-94.0); Mean Platelet Volume 7.6 fL (7.4-10.4); Platelet Count 184 thou/uL (130-400); RBC Distribution Width 12.8 % (11.5-14.5); White Blood Cell (WBC) Count 8.3 thou/uL (4.8-10.8)
[2017-12-07 04:29] LABS: Anion Gap 10 mmol/L (10-20); BUN (Urea Nitrogen) 17 mg/dL (8.4-25.7); Calc. Creatinine Clearance 128 mL/min (70-130); Calcium 9.1 mg/dL (7.8-10.44); Carbon Dioxide 23 mmol/L (23-31); Chloride 111 mmol/L (98-107); Estimated GFR-MDRD 77; Glucose 126 mg/dL (80-115); Potassium 3.9 mmol/L (3.5-5.1); Sodium 140 mmol/L (136-145)
[2017-12-07 04:35] LABS: Troponin I 0.019 ng/mL (< 0.028)
--- NOTE | 2017-12-07 07:29 | PDOC.PN ---
- Subjective Encounter Start Date: 12/07/17 Encounter Start Time: 07:28 Subjective: no dizziness or chest pain - Objective MAR Reviewed: Yes Vital Signs & Weight: Vital Signs (12 hours) Temp Pulse Resp BP Pulse Ox 12/07/17 04:08 93 18 120/76 12/07/17 00:07 98.1 F 98 18 149/73 H 97 Weight Weight 269 lb 4.8 oz Result Diagrams: 12/07/17 04:10 12/07/17 04:10 Phys Exam - Physical Examination Neck: no JVD Respiratory: clear to auscultation bilateral Cardiovascular: no significant murmur, irregular Gastrointestinal: soft, positive bowel sounds Musculoskeletal: no edema, pulses present Dx/Plan (1) Hypothyroidism Code(s): E03.9 - HYPOTHYROIDISM, UNSPECIFIED Status: Acute Qualifiers: Hypothyroidism type: due to medication Qualified Code(s): E03.2 - Hypothyroidism due to medicaments and other exogenous substances (2) Atrial fibrillation with RVR Code(s): I48.91 - UNSPECIFIED ATRIAL FIBRILLATION Status: Acute Comment: controlled with cardizem drip (3) Hypertension Code(s): I10 - ESSENTIAL (PRIMARY) HYPERTENSION Status: Chronic Qualifiers: Hypertension type: essential hypertension Qualified Code(s): I10 - Essential (primary) hypertension (4) Non-ischemic cardiomyopathy Code(s): I42.9 - CARDIOMYOPATHY, UNSPECIFIED Status: Chronic - Plan rate stable at present, discuss with cardiology * .
[2017-12-07] MEDS ORDERED: Carvedilol 3.125 MG TAB PO SCH (09:00)
[2017-12-07] MEDS ORDERED: Docusate 100 MG CAP PO SCH (09:00)
[2017-12-07] MEDS ORDERED: Lisinopril 10 MG TAB PO SCH (09:00)
[2017-12-07] MEDS: Propafenone HCl 150 MG TAB PO SCH ×2 (09:53→12:30)
[2017-12-07] MEDS ORDERED: Apixaban 5 MG TAB PO SCH ×2 (11:30→21:00)
--- NOTE | 2017-12-07 13:33 | CON ---
DATE OF CONSULTATION: 12/07/2017 ELECTROPHYSIOLOGY CONSULTATION REASON FOR CONSULTATION: Atrial fibrillation and atrial flutter with RVR. REQUESTING PHYSICIAN: Dr. Noble. HISTORY OF PRESENT ILLNESS: Mr. Parks is a very pleasant male with a longstanding history of atrial fibrillation. He was originally diagnosed in 2012. He has failed multiple antiarrhythmic medication s in the past. He has not tolerated amiodarone which caused hyperthyroidism. Multaq was ineffective and he had substantial dizziness. He has since been on propafenone, which controlled him for some t liam; however, began to have breakthrough paroxysmal atrial fibrillation episodes with RVRs over the p ast 6-9 months. He underwent ablation for his atrial fibrillation on 11/19/2017. At that time, it w as found that his left atria were severely enlarged and he has had early recurrence of his arrhythmia during the acute recovery phase post-ablation. His propafenone was resumed and we have placed him o n diltiazem for additional rate control. Overall, he is asymptomatic when he is out of rhythm until his heart rate reaches 130-140 at which point he feels diaphoretic and somewhat uneasy. He was in th e emergency room 2 days ago for RVR and heart rate was eventually slowed to the low 100 range with di ltiazem IV and then he was placed on p.o. diltiazem. Unfortunately, last night he began to experienc e heart rates in 140 range and felt poorly with this prompting him to present to the emergency room. He continues to take Eliquis for stroke prophylaxis. He is on Rythmol 150 mg q.i.d. as well as dilt iazem 120 mg daily that was started few days ago. Currently, he is feeling fine. He does not experi ence any heart racing, palpitations, chest pressure, syncope or near syncopal episodes. He denies an y stroke or stroke-like symptoms. He is more concerned about the recurrence and knowing when to seek medical attention. REVIEW OF SYSTEMS: A 12-point review of systems was conducted and is negative except that listed abo ve in the HPI. PAST MEDICAL HISTORY: 1. Persistent atrial fibrillation refractory to antiarrhythmic therapy. 1A. Status post prior cardioversion and subsequent PVI on 11/19/2017. 2. Oral anticoagulation on Eliquis. 3. Propafenone antiarrhythmic therapy post-ablation. 4. History of severely reduced LVEF previously 10%-15% most recently estimated 35-40% with his persi stent atrial fibrillation. 5. Clean left heart catheterization in 04/2013. 6. Coronary artery disease risk factors includes hypertension and hypercholesterolemia. 7. History of antiarrhythmic drug intolerance of hypothyroidism on amiodarone and dizziness with Mul taq. ALLERGIES: None. HOME MEDICATIONS: Include Eliquis 5 mg b.i.d., propafenone 150 mg q.i.d., lisinopril 10 mg daily, Co reg 3.125 mg b.i.d., Lasix 40 mg daily, Klor-Con 10 mEq daily, pravastatin 20 mg p.o. at bedtime, mul tivitamin daily, Xanax 0.5 mg as needed, Nasacort as needed, and Cartia 120 mg daily. FAMILY HISTORY: Mother positive for congestive heart failure. Father positive for cerebrovascular a ccident. Negative for early onset of coronary artery disease or sudden cardiac . SOCIAL HISTORY: Negative for tobacco or illicit drug use. Positive for occasional alcoholic rosa maria durham. Retired from [employer]. PHYSICAL EXAMINATION: GENERAL: This is a well-appearing, well-groomed male in no apparent distress. He is alert and orien ines. His speech is clear. His affect is appropriate. NECK: Supple without jugular venous distention. CARDIOVASCULAR: His heart rate is irregular. PMI is nondisplaced. LUNGS: Clear to auscultation bilaterally without wheezes, crackles or rhonchi. ABDOMEN: Soft and nontender without palpable masses. Positive bowel sounds are noted throughout. EXTREMITIES: Warm and dry to touch without clubbing, cyanosis or edema. NEUROLOGIC: Grossly intact and nonfocal and his gait is stable. LABORATORY DATA AND IMAGING DATA: Hematology was unremarkable. Chemistry unremarkable except slight ly elevated glucose. BNP 162. Troponins are negative. TSH 2.3. Review of telemetry and EKGs reveal atrial fibrillation as well as atypical flutter with RVR, initial ly presenting with some 120-130 beats per minute range. Currently, heart rate varies between 90 and 135. QRS is narrow at 106 milliseconds and QTC is 477 milliseconds. IMPRESSION AND PLAN: 1. Early recurrence of atypical atrial flutter and atrial fibrillation, status post recent PVI ablat ion approximately 2 weeks ago. 2. Oral anticoagulation on Eliquis. 3. Continued antiarrhythmic therapy with propafenone given recurrence of arrhythmias. RECOMMENDATIONS: Cardioversion, which we performed later today. The patient has not had any interru ption in his Eliquis; therefore, he does not require CYNTHIA prior to cardioversion. He is on Rythmol, w hich was then increased to 150 mg q.i.d. and has also been placed on diltiazem for additional rate co ntrol. After cardioversion, once the patient has recovered from anesthesia, it is okay for him to di scharge home and follow up as already scheduled with [facility]. Moving forward if he does have additional recurrence, and requires repeat cardioversion, we will consider transitioning hi m to Tikosyn for antiarrhythmic therapy as this has not been tried in the past, but would require hos pitalization for monitoring during initiation. Risks and benefits of cardioversion were discussed in cluding pain discomfort, arrhythmias and asystole. Patient voices understanding and agrees to move f orward with the procedure either myself or Dr. Ko will be performing the cardioversion, which prateek bunch is agreeable too. Thank you for allowing us to participate in the care of this patient.
[2017-12-07] MEDS ORDERED: PROPOFOL 200 MG/20 ML VIAL ONE (13:43)
[2017-12-07] MEDS ORDERED: Hydrocortisone 1% Cream 30 GM TUBE ONE (14:34)
--- NOTE | 2017-12-07 14:35 | OP ---
CARDIOLOGY PROCEDURE NOTE: Date: 12/07/17 PREPROCEDURE DIAGNOSIS: Atrial fibrillation. PROCEDURES PERFORMED: Direct current cardioversion. SUMMARY: Mr. Parks is a pleasant 67-year-old gentleman who comes to the hospital for palpitations. He was foun d to be in atrial fibrillation. He recently had an ablation about 3 weeks ago for his atrial fibrilla tion. A consultation was done, EP evaluated and decided cardioversion was the best route at this gloria e, so he was brought down to the outpatient area for this. Anesthesia department provided sedation fo r the patient. Please see their notes for details). After adequate sedation was achieved, a first 100 joule synchronized shock was delivered, not converting him into fibrillation. A second shock at 200 joules successfully converted him into sinus rhythm with PACs. He tolerated the procedure well. RECOMMENDATIONS: Continue full anticoagulation. Continue other medications. Follow up with Dr. Valdes and EP as sche duled.
[2017-12-07 15:05] VITALS: BP 137/79; TEMP 97.9
--- NOTE | 2017-12-07 16:36 | DIS ---
DATE OF ADMISSION: 12/06/2017 DATE OF DISCHARGE: 12/07/2017 DISPOSITION: Discharged home. PRIMARY CARE PROVIDER: Dr. Michael Gustafson. FINAL DIAGNOSES: Atrial fibrillation with rapid ventricular response, chronic anticoagulation, dysli pidemia, hypertension, cardiomyopathy. DISCHARGE MEDICATIONS: Cardizem-CD 120 was changed to CD 180, Rythmol 150 q.i.d., pravastatin 20 mg at bedtime, Zocor 10 mg at bedtime, Lisinopril 10 mg a day, Eliquis 5 mg p.o. b.i.d., Coreg 3.125 mg p.o. b.i.d., Protonix 40 mg a day. ALLERGIES: To AMIODARONE. CODE STATUS: FULL. PENDING AT THE TIME OF DISCHARGE: Nothing. DIET: Heart healthy. CONSULTATIONS: Dr. Evdin Kee, Dr. Chaidez. PROCEDURES: Discontinue cardioversion synchronized with sedation from atrial fibrillation to regular sinus rhythm. HOSPITAL COURSE: The patient presented with atrial fibrillation, rapid ventricular response and was placed in the hospital. His Cardizem-CD 120 was originally continued with boluses of Cardizem IV. T ayaka his dose was changed from 120 to 180. He underwent discontinue cardioversion into regular sinus rhythm. Pertinent Laboratories, CBC normal x2. Basic metabolic profile, chloride 110, CO2 22. Car diac enzymes normal x3. BNP 162. TSH 2.3. The patient is currently in regular sinus rhythm. Blood pressure 137/79, pulse 67, respirations 16. Cardiorespiratory exam is normal. He is being discharg ed for followup with Dr. Gustafson in 1 week[address] Follow up with Dr. Felix, 01/10/2018. Follow up with Dr. Feliciano harrison per Dr. Valdes's recommendations.
[2017-12-07] MEDS ORDERED: Simvastatin 5 MG TAB PO SCH (21:00)
--- NOTE | 2017-12-11 18:25 | EKG ---
Test Reason : POST CARDIOVERSION Blood Pressure : / mmHG Vent. Rate : 067 BPM Atrial Rate : 067 BPM P-R Int : 172 ms QRS Dur : 104 ms QT Int : 440 ms P-R-T Axes : -17 -20 -05 degrees QTc Int : 464 ms Sinus rhythm with occasional Premature ventricular complexes Minimal voltage criteria for LVH, may be normal variant Borderline ECG When compared with ECG of 06-DEC-2017 23:28, (Unconfirmed) Sinus rhythm has replaced Junctional rhythm Confirmed by Lee LAWSON ([id number]) on 12/11/2017 6:24:28 PM Referred By: AMOS Confirmed By:Lee LAWSON
== END 2017-12-07 16:52 | disposition home or self-care (01) ==
LOC: ERS 22:11 → 2SW 12-07 00:05
PROVIDERS: ADMIT Internal Medicine; ATTEND Internal Medicine
PROC: 5A2204Z Restoration of Cardiac Rhythm, Single (ICD-10-PCS; principal; 2017-12-06)
DX: I48.1 Persistent atrial fibrillation (principal); I48.4 Atypical atrial flutter; E03.2 Hypothyroidism due to medicaments and other exogenous substances; T46.2X5A Adverse effect of other antidysrhythmic drugs, initial encounter; I42.8 Other cardiomyopathies; I10 Essential (primary) hypertension; E78.5 Hyperlipidemia, unspecified; E78.00 Pure hypercholesterolemia, unspecified; Z79.01 Long term (current) use of anticoagulants; Z79.899 Other long term (current) drug therapy; Z88.8 Allergy status to other drugs, medicaments and biological substances
CPT/HCPCS: 71045; 80048; 82553; 83880; 84484 ×2; 92960; 93005 ×2; 96374; 99285; G0378; 36415; 80053; 84443; 85025; 93010; J2704

== ENCOUNTER 2017-12-26 09:08 | Outpatient (CLI) | payer MEDICARE, OTHER ==
[2017-12-26 10:46] LABS: #Basophils 0.1 thou/uL (0.0-0.2); #Eosinphils 0.3 thou/uL (0.0-0.7); #Lymphocytes 2.3 thou/uL (1.20-3.40); #Monocytes 0.7 thou/uL (0.11-0.59); #Neutrophils 4.7 thou/uL (1.40-6.50); %Basophils 0.9 % (0.0-1.0); %Eosinophils 3.2 % (0.0-10.0); %Lymphocytes 28.6 % (21.0-51.0); %Monocytes 8.9 % (0.0-10.0); %Neutrophils 58.3 % (42.0-75.0); Hemoglobin 15.9 g/dL (14.0-18.0); Mean Corpuscular HGB CONC 33.8 g/dL (32.0-36.0); Mean Corpuscular Volume 88.8 fL (78.0-98.0); Mean Platelet Volume 7.9 fL (7.4-10.4); Platelet Count 190 thou/uL (130-400); RBC Distribution Width 12.8 % (11.5-14.5); Red Blood Cell (RBC) Count 5.28 mill/uL (4.70-6.10); White Blood Cell (WBC) Count 8.1 thou/uL (4.8-10.8)
[2017-12-26 11:06] LABS: INR-International Normal Ratio 1.2; Prothrombin Time 15.9 SEC (12.0-14.7)
[2017-12-26 11:07] LABS: PTT 31.7 SEC (22.9-36.1)
[2017-12-26 11:33] LABS: Anion Gap 14 mmol/L (10-20); BUN (Urea Nitrogen) 15 mg/dL (8.4-25.7); Calc. Creatinine Clearance 0 mL/min (70-130); Calcium 9.8 mg/dL (7.8-10.44); Carbon Dioxide 26 mmol/L (23-31); Chloride 106 mmol/L (98-107); Estimated GFR-MDRD 59; Glucose 132 mg/dL (80-115); Potassium 4.3 mmol/L (3.5-5.1); Sodium 142 mmol/L (136-145)
== END 2017-12-26 09:09 | disposition home or self-care (01) ==
LOC: LABBT 09:08
PROVIDERS: ATTEND Internal Medicine Cardiovascular Disease
DX: Z01.818 Encounter for other preprocedural examination (principal); Z51.81 Encounter for therapeutic drug level monitoring; I48.91 Unspecified atrial fibrillation; Z79.01 Long term (current) use of anticoagulants
CPT/HCPCS: 80048; 85025; 85610; 85730; 93005; 93010

== ENCOUNTER 2017-12-27 05:45 | Day surgery (SDC) | payer MEDICARE, OTHER ==
[2017-12-26 09:25] VITALS: BMI 33.7
[2017-12-27] MEDS ORDERED: PROPOFOL 20 ML ONE (07:51)
[2017-12-27] MEDS ORDERED: Hydrocortisone 1% Cream 30 GM TUBE ONE (08:34)
--- NOTE | 2017-12-27 09:26 | OP ---
DATE OF PROCEDURE: 12/27/2017 CARDIOVERSION REPORT SURGEON: Dr. Micky Felix REFERRING PHYSICIAN: REASON FOR PROCEDURE: Mr. Parks is a 67-year-old male with history of persistent atrial fibrillation . He is here for recurrence of atrial fibrillation 2 days after his original ablation procedure 11/06. He is here with recurrent event. He has been anticoagulated with Eliquis without stopping. PROCEDURE: The patient received deep sedation by Anesthesia specialist. After adequate level of sed ation achieved, a synchronized 100 joule shock failed to convert him back to sinus rhythm, but a foll owup 200 joule shock achieved sinus rhythm. CONCLUSION: Successful cardioversion. PLAN: Continue anticoagulation and current propafenone levels.
== END 2017-12-27 09:00 | disposition home or self-care (01) ==
LOC: CCL 05:45
PROVIDERS: ATTEND Internal Medicine Cardiovascular Disease
DX: I48.1 Persistent atrial fibrillation (principal); Z79.01 Long term (current) use of anticoagulants; Z79.899 Other long term (current) drug therapy; Z88.8 Allergy status to other drugs, medicaments and biological substances
CPT/HCPCS: 92960; J2704

== ENCOUNTER 2018-02-18 10:27 | Outpatient (CLI) | payer MEDICARE, OTHER ==
[2018-02-18 12:08] LABS: Hemoglobin 14.8 g/dL (14.0-18.0); Mean Corpuscular HGB CONC 32.8 g/dL (32.0-36.0); Mean Corpuscular Hemoglobin 29.6 pg (27.0-31.0); Mean Corpuscular Volume 90.4 fL (78.0-98.0); Platelet Count 182 thou/uL (130-400); RBC Distribution Width 12.4 % (11.5-14.5); Red Blood Cell (RBC) Count 5.01 mill/uL (4.70-6.10); White Blood Cell (WBC) Count 6.3 thou/uL (4.8-10.8)
[2018-02-18 12:14] LABS: INR-International Normal Ratio 1.2; Prothrombin Time 15.4 SEC (12.0-14.7)
[2018-02-18 12:49] LABS: Anion Gap 12 mmol/L (10-20); BUN (Urea Nitrogen) 15 mg/dL (8.4-25.7); Calc. Creatinine Clearance 0 mL/min (70-130); Calcium 9.3 mg/dL (7.8-10.44); Carbon Dioxide 27 mmol/L (23-31); Chloride 106 mmol/L (98-107); Estimated GFR-MDRD 73; Glucose 90 mg/dL (80-115); Potassium 4.5 mmol/L (3.5-5.1); Sodium 140 mmol/L (136-145)
== END 2018-02-18 10:28 | disposition home or self-care (01) ==
LOC: LABBT 10:27
PROVIDERS: ATTEND Internal Medicine Cardiovascular Disease
DX: Z01.818 Encounter for other preprocedural examination (principal); Z51.81 Encounter for therapeutic drug level monitoring; I48.91 Unspecified atrial fibrillation; Z79.01 Long term (current) use of anticoagulants
CPT/HCPCS: 80048; 85027; 85610; 85730

== ENCOUNTER 2018-02-23 17:41 | Inpatient (IN) | payer MEDICARE, OTHER ==
--- NOTE | 2018-02-23 18:08 | RAD ---
CHEST TWO VIEWS: 02/23/18 HISTORY: Cardiac ablation, weakness, dizziness. COMPARISON: 06/11/15. FINDINGS: The cardiac silhouette and pulmonary vasculature are unremarkable. Mediastinum is midline. No conflue nt air space consolidation, pneumothorax, or pleural fluid. IMPRESSION: No active cardiopulmonary abnormalities are demonstrated. POS: [facility]
[2018-02-23 18:26] LABS: #Basophils 0.1 thou/uL (0.0-0.2); #Eosinphils 0.2 thou/uL (0.0-0.7); #Lymphocytes 4.2 thou/uL (1.20-3.40); #Monocytes 1.1 thou/uL (0.11-0.59); %Basophils 1.2 % (0.0-1.0); %Lymphocytes 39.4 % (21.0-51.0); %Neutrophils 47.5 % (42.0-75.0); Hemoglobin 14.4 g/dL (14.0-18.0); Mean Corpuscular HGB CONC 33.9 g/dL (32.0-36.0); Mean Corpuscular Hemoglobin 30.2 pg (27.0-31.0); Mean Corpuscular Volume 89.1 fL (78.0-98.0); Mean Platelet Volume 7.9 fL (7.4-10.4); Platelet Count 172 thou/uL (130-400); RBC Distribution Width 12.6 % (11.5-14.5); Red Blood Cell (RBC) Count 4.75 mill/uL (4.70-6.10); White Blood Cell (WBC) Count 10.6 thou/uL (4.8-10.8)
[2018-02-23 18:48] LABS: ALT (SGPT) 20 U/L (8-55); AST (SGOT) 39 U/L (5-34); Albumin 4.2 g/dL (3.4-4.8); Alkaline Phosphatase 81 U/L (40-150); Anion Gap 15 mmol/L (10-20); BUN (Urea Nitrogen) 23 mg/dL (8.4-25.7); Bilirubin, Total 0.4 mg/dL (0.2-1.2); CK (CPK) 110 U/L (30-200); Calc. Creatinine Clearance 0 mL/min (70-130); Calcium 8.9 mg/dL (7.8-10.44); Carbon Dioxide 21 mmol/L (23-31); Chloride 105 mmol/L (98-107); Estimated GFR-MDRD 66; Globulin 3.2 g/dL (2.4-3.5); Glucose 142 mg/dL (80-115); Potassium 4.4 mmol/L (3.5-5.1); Protein, Total 7.4 g/dL (5.8-8.1); Sodium 137 mmol/L (136-145)
[2018-02-23 18:50] LABS: CKMB 4.8 ng/mL (0-6.6)
[2018-02-23 18:52] LABS: Troponin I 2.933 ng/mL (< 0.028)
[2018-02-23] MEDS ORDERED: Ondansetron HCl/PF 4 MG/2 ML Vial IVP PRN (20:31)
[2018-02-23] MEDS ORDERED: Acetaminophen 325 MG TAB PO PRN (20:31)
[2018-02-23] MEDS ORDERED: ALPRAZolam 0.5 MG TAB PO PRN (20:34)
[2018-02-23 21:53] LABS: Critical Call Chem Troponin I RESULT DECREASING; Troponin I 2.723 ng/mL (< 0.028)
--- NOTE | 2018-02-23 22:53 | HP ---
CODE STATUS: FULL CODE. PRIMARY CARE PHYSICIAN: Dr. Michael Gustafson. TELE GROUT SEWER LINE REPAIRER: Dr. Valdes. ELECTROPHYSIOLOGY DOCTOR: Dr. Felix. TIME OF EVALUATION: 8:20 p.m. CHIEF COMPLAINT: Generalized weakness. HISTORY OF PRESENT ILLNESS: This is a 67 years old male patient with past medical history of atrial fibrillation with multiple attempts for ablation in the past. Patient has had his last attempt for a blation and atrial fibrillation reversion on night and went home. Patient reported today he was feeling nauseated, having severe generalized weakness, feeling dry. He reported he had been als o started on Lasix due to the procedure for a period of 5 days. There were no clear triggers for the symptoms. No alleviating factors. He was also found to have troponin in the 2 range and that could be secondary to recent procedure. The symptoms started this afternoon. REVIEW OF SYSTEMS: Constitutional: The patient reported generalized weakness. No fever, no chills. Respiratory: No cough, sputum production, shortness of breath. Cardiovascular: The patient had n o chest pain, palpitations, or shortness of breath. Gastrointestinal: The patient felt nauseated, n o vomiting, no diarrhea, no abdominal pain. DISCOVERY MANAGER: No dizziness, headache, or feeling lightheaded. G enitourinary: No burning with urination. Extremities: No leg swelling. All other systems were rev iewed and negative except for the findings mentioned above. PAST MEDICAL HISTORY: Positive for atrial fibrillation, CHF, diagnosis not clear, patient has been r ecommended to have Lasix only during ablations; hypertension. PAST SURGICAL HISTORY: Cardioversion x3, ablation in 11/2017 and 02/21/2018. PSYCHIATRIC HISTORY: No previous psychiatric history. SOCIAL HISTORY: He lives at home with family. No alcohol, no drugs, no smoking history. KNOWN ALLERGIES: AMIODARONE. REPORTED MEDICATIONS: Eliquis, lisinopril, carvedilol, pravastatin, multivitamin, alprazolam, Cardiz em, colchicine, Lasix, potassium chloride. PHYSICAL EXAMINATION: VITAL SIGNS: On presentation, blood pressure 131/83 with heart rate 75, respiratory rate was 16, tem perature 98.2, oxygen saturation was 99 on room air. GENERAL APPEARANCE: Patient is alert, oriented, in no acute distress. HEENT: Eyes: Normal conjunctivae. Moist oral mucosa. Eyes, anicteric. NECK: No JVD. RESPIRATORY: Bilateral air entry. No rales, no wheezing. Symmetric expansion. CARDIOVASCULAR: Normal rate, irregular rhythm. No murmurs, no gallop. No edema. ABDOMEN: Soft, normal bowel sounds. MUSCULOSKELETAL: Baseline range of motion and strength. No tenderness. SKIN: Warm and intact. No pallor, no rash, no redness. Peripheral pulses are present. Capillary r efill seems to be intact. NEUROLOGIC: Baseline sensory. No evidence of any new focal weakness. Baseline speech. Cranial ner ve seems to be intact. PSYCHIATRIC: The patient in good mood. No anxiety, oriented, optimal judgment. IMAGING: EKG was reviewed by myself. The patient has irregular rhythm, likely secondary to atrial f ibrillation, although occasionally seems to have some P waves, related to GERD, ventricular rate 72, QRS 98, QT corrected 451. X-ray was reviewed. The patient has no active cardiopulmonary abnormaliti es. LABORATORY DATA: The labs were reviewed. The patient has white count 10.6, hemoglobin 14.4, MCV 89, platelet count 172. Sodium 137, potassium 4.4, chloride 105, carbon dioxide 21, anion gap 15, BUN 2 3, creatinine 1.1, glucose 142. LFTs were negative. Troponin the first one 2.933 and the second one 2.723. Beta natriuretic peptide 70.3. ASSESSMENT AND PLAN: The patient will be placed in the hospital with following medical problems: 1. Generalized weakness, unclear etiology, could be secondary to a recent procedure plus addition of Lasix to patient's current treatment. We will monitor on telemetry overnight. 2. Elevated troponin. This is likely secondary from the procedure that was done on . Tropo nins are trending down. We will trend another one overnight. The patient has completed treatment fo r any coronary disease. We will reconcile home medications. 3. Controlled hypertension. We will reconcile home medications, monitor, and adjust treatment as ne eded. 4. Deep venous thrombosis prophylaxis. 5. Atrial fibrillation with controlled rate. Reconcile home medications. Patient has been on liqui ds, we will continue for now. 6. Systolic dysfunction. Reconcile home medications. Continue Lasix for now. This is as per repor t from the echo that was done in October of this year by Dr. Valdes with EF 35%-40%.
[2018-02-23 23:00] VITALS: BMI 33.1
[2018-02-23] MEDS: Apixaban 5 MG TAB PO SCH (23:34)
[2018-02-23] MEDS: Carvedilol 3.125 MG TAB PO SCH (23:34)
[2018-02-23] MEDS: Pravastatin Sodium 20 MG TAB PO SCH (23:35)
[2018-02-23] MEDS: Colchicine 0.3 MG TAB PO SCH (23:35)
[2018-02-23] MEDS: Propafenone HCl 150 MG TAB PO SCH (23:35)
[2018-02-23] MEDS: Furosemide 40 MG TAB PO SCH (23:36)
[2018-02-24 01:03] LABS: Critical Call Chem Troponin I RESULT DECREASING; Troponin I 2.348 ng/mL (< 0.028)
[2018-02-24 05:55] LABS: #Basophils 0.1 thou/uL (0.0-0.2); #Eosinphils 0.2 thou/uL (0.0-0.7); #Lymphocytes 3.6 thou/uL (1.20-3.40); #Monocytes 0.9 thou/uL (0.11-0.59); #Neutrophils 3.3 thou/uL (1.40-6.50); %Basophils 1.1 % (0.0-1.0); %Eosinophils 2.4 % (0.0-10.0); %Lymphocytes 44.2 % (21.0-51.0); %Neutrophils 41.3 % (42.0-75.0); Hemoglobin 13.1 g/dL (14.0-18.0); Mean Corpuscular HGB CONC 33.1 g/dL (32.0-36.0); Mean Corpuscular Hemoglobin 30.1 pg (27.0-31.0); Mean Corpuscular Volume 90.8 fL (78.0-98.0); Mean Platelet Volume 7.8 fL (7.4-10.4); Platelet Count 147 thou/uL (130-400); RBC Distribution Width 12.5 % (11.5-14.5); Red Blood Cell (RBC) Count 4.37 mill/uL (4.70-6.10); White Blood Cell (WBC) Count 8.1 thou/uL (4.8-10.8)
[2018-02-24 06:13] LABS: Anion Gap 8 mmol/L (10-20); BUN (Urea Nitrogen) 18 mg/dL (8.4-25.7); Calc. Creatinine Clearance 122 mL/min (70-130); Calcium 8.5 mg/dL (7.8-10.44); Carbon Dioxide 28 mmol/L (23-31); Chloride 106 mmol/L (98-107); Estimated GFR-MDRD 75; Glucose 103 mg/dL (80-115); Potassium 4.1 mmol/L (3.5-5.1); Sodium 138 mmol/L (136-145)
[2018-02-24] MEDS: Lisinopril 10 MG TAB PO SCH (10:15)
[2018-02-24] MEDS: Multivit, Therapeutic 1 TAB PO SCH ×2 (10:15→12:44)
[2018-02-24] MEDS: Propafenone HCl 150 MG TAB PO SCH ×4 (10:16→22:02)
[2018-02-24] MEDS: Aspirin 325 mg Enteric Coated Tablet PO SCH ×3 (10:16→12:46)
[2018-02-24] MEDS: Furosemide 40 MG TAB PO SCH ×2 (10:16→18:18)
[2018-02-24] MEDS: Apixaban 5 MG TAB PO SCH ×2 (10:16→22:02)
[2018-02-24] MEDS: Carvedilol 3.125 MG TAB PO SCH ×4 (10:17→22:02)
[2018-02-24] MEDS: Colchicine 0.3 MG TAB PO SCH ×2 (10:17→18:20)
[2018-02-24] MEDS ORDERED: Pantoprazole 40 MG VIAL IVP SCH (11:45)
[2018-02-24] MEDS: Potassium Chloride 20 MEQ TAB PO SCH ×2 (12:43→18:12)
[2018-02-24] MEDS ORDERED: Diltiazem HCl SR 60 mg Capsule PO SCH (14:00)
--- NOTE | 2018-02-24 14:36 | CON ---
DATE OF CONSULTATION: 02/24/2018 REASON FOR CONSULTATION: Weakness. HISTORY OF PRESENT ILLNESS: Mr. Parks is a pleasant 67-year-old gentleman, who recently was discharg ed from the hospital on Sunday. He underwent a Afib ablation on that was unsuccessful. He was found to be in atrial fibrillation on Sunday. He was discharged. He was placed on increased dos e of Lasix. He states he then had weakness noted. His Lasix has been doubled. He felt clammy with heart rate in the 60s. He proceed to the emergency room and was found to have blood pressure in the 90s. He was given IV fluids with improvement in symptoms. He also had elevated troponin likely rela ines to recent ablation. His CK-MB was felt to be within normal limits. PAST MEDICAL HISTORY: Atrial fibrillation, status post ablation, failed cardioversion. SOCIAL HISTORY: No current tobacco or alcohol use. ALLERGIES: AMIODARONE. HOME MEDICATIONS: Eliquis, Lasix, lisinopril, potassium, carvedilol, pravastatin, multivitamin, alpr azolam, and Cardizem. REVIEW OF SYSTEMS: Ten-point review of systems reviewed and as above, otherwise negative. PHYSICAL EXAMINATION: VITAL SIGNS: Blood pressure 120/90, pulse to 130s to 140s, respirations 20. NEUROLOGIC: The patient is alert and oriented times 3 with no focal neurologic deficits. HEENT: Sclerae without icterus. Mouth has moist mucous membranes with normal pallor. NECK: No JVD. Carotid upstroke brisk. No bruits bilaterally. LUNGS: Clear to auscultation with unlabored respirations. BACK: No scoliosis or kyphosis. CARDIAC: Irregularly regular. ABDOMEN: Soft, nontender, nondistended. No peritoneal signs present. No hepatosplenomegaly. No abnormal striae. EXTREMITIES: 2+ femoral and 2+ dorsalis pedis pulses. No cyanosis, clubbing, or edema. SKIN: No gross abnormalities. PERTINENT LABS: Hemoglobin 13.1, creatinine 1.0. Peak troponin 2.3 and continues to be down trendin g, negative CK-MB. IMPRESSION: 1. Atrial fibrillation with rapid ventricular response. 2. Elevated troponin. 3. Weakness. RECOMMENDATIONS: We will need to readjust Mr. Parks's current medical therapy. He states that there has been much confusion about what he should be on. At this point, the goal is rate control. He is on p.o. Cardizem in addition to carvedilol. We will give an additional dose of Cardizem 60 mg and a djust p.o. if needed. We will add IV Cardizem if needed for better rate control. He does not respon d to the 60 mg p.o. We would continue carvedilol. We will discontinue increase Lasix to q.a.m. dosi ng. Further recommendations per Dr. Redman in a.m.
--- NOTE | 2018-02-24 21:32 | PDOC.PN ---
- Subjective Encounter Start Date: 02/24/18 Encounter Start Time: 13:00 Subjective: pt up in bed no complains - Objective Resuscitation Status: Resuscitation Status FULL:Full Resuscitation Vital Signs & Weight: Vital Signs (12 hours) Temp Pulse Resp BP BP Pulse Ox 02/24/18 20:00 98.7 F 73 20 02/24/18 18:20 98.7 F 73 20 107/64 98 02/24/18 15:30 97.9 F 89 20 107/69 97 02/24/18 15:00 112 H 134/70 02/24/18 10:59 97.5 F L 115 H 20 120/90 98 Weight Weight 265 lb 4.8 oz I&O: 02/23/18 02/24/18 02/25/18 06:59 06:59 06:59 Intake Total 120 960 Output Total 0 850 Balance 120 110 Result Diagrams: 02/24/18 05:38 02/24/18 05:38 Phys Exam - Physical Examination Respiratory: no wheezing, no rales, no rhonchi, wheezing present, clear to auscultation bilateral Cardiovascular: RRR, no significant murmur, no rub, gallop, irregular Gastrointestinal: soft, non-tender, no distention, positive bowel sounds Dx/Plan (1) Generalized weakness Code(s): R53.1 - WEAKNESS Status: Acute (2) Atrial fibrillation with RVR Code(s): I48.91 - UNSPECIFIED ATRIAL FIBRILLATION Status: Acute Comment: controlled with cardizem drip (3) Elevated troponin Code(s): R74.8 - ABNORMAL LEVELS OF OTHER SERUM ENZYMES Status: Acute - Plan elevated trops most likely due to recent ablation -: pt still goes into afib rvr on ambulation but is asymtomatic -: will continue AC and home meds -: cardiology consulted. pt has no chest pain or sob * . Review of Systems - Review of Systems Respiratory: negative: Cough, Dry, Shortness of Breath, Hemoptysis, SOB with Excertion, Pleuritic Pain, Sputum, Wheezing Cardiovascular: negative: chest pain, palpitations, orthopnea, paroxysmal nocturnal dyspnea, edema, light headedness, other Gastrointestinal: negative: Nausea, Vomiting, Abdominal Pain, Diarrhea, Constipation, Melena, Hematochezia, Other Genitourinary: negative: Dysuria, Frequency, Incontinence, Hematuria, Retention , Other - Medications/Allergies Allergies/Adverse Reactions: Allergies Allergy/AdvReac Type Severity Reaction Status Date / Time amiodarone AdvReac Verified 02/18/18 10:56 Medications: Current Medications Acetaminophen (Tylenol) 650 mg PO Q4H PRN PRN Reason: Headache/Fever or Pain Alprazolam (Xanax) 0.5 mg PO DAILYPRN PRN PRN Reason: Anxiety Apixaban (Eliquis) 5 mg PO BID [facility] Last Admin: 02/24/18 10:16 Dose: 5 mg Aspirin (Ecotrin) 325 mg PO DAILY [facility] Carvedilol (Coreg) 3.125 mg PO BID [facility] Colchicine (Colcrys) 0.3 mg PO BID [facility] Last Admin: 02/24/18 18:20 Dose: Not Given Diltiazem HCl (Cardizem Cd) 180 mg PO DAILY [facility] Last Admin: 02/24/18 10:16 Dose: 180 mg Lisinopril (Zestril) 10 mg PO DAILY [facility] Last Admin: 02/24/18 10:15 Dose: 10 mg Multivitamins (Theragran) 1 tab PO DAILY [facility] Last Admin: 02/24/18 12:44 Dose: 1 tab Ondansetron HCl (Zofran) 4 mg IVP Q6H PRN PRN Reason: Nausea/Vomiting Pantoprazole Sodium (Protonix) 40 mg PO DAILY [facility] Pravastatin Sodium (Pravachol) 20 mg PO HS [facility] Last Admin: 02/23/18 23:35 Dose: 20 mg Propafenone HCl (Rythmol) 150 mg PO TID [facility] Sodium Chloride (Flush - Normal Saline) 10 ml IVF PRN PRN PRN Reason: Saline Flush
[2018-02-24] MEDS: Pravastatin Sodium 20 MG TAB PO SCH (22:02)
[2018-02-25] MEDS: Propafenone HCl 150 MG TAB PO SCH ×3 (08:29→20:37)
[2018-02-25] MEDS: Carvedilol 3.125 MG TAB PO SCH ×3 (08:29→20:35)
[2018-02-25] MEDS: Apixaban 5 MG TAB PO SCH ×2 (08:29→20:35)
[2018-02-25] MEDS: Lisinopril 10 MG TAB PO SCH (08:29)
[2018-02-25] MEDS: Multivit, Therapeutic 1 TAB PO SCH (08:29)
[2018-02-25] MEDS ORDERED: Aspirin 325 mg Enteric Coated Tablet PO SCH (09:00)
--- NOTE | 2018-02-25 10:53 | PDOC.PN ---
- Subjective Encounter Start Date: 02/25/18 Encounter Start Time: 10:52 Subjective: feels great - Objective Resuscitation Status: Resuscitation Status FULL:Full Resuscitation MAR Reviewed: Yes Vital Signs & Weight: Vital Signs (12 hours) Temp Pulse Resp BP Pulse Ox 02/25/18 07:54 98.6 F 86 16 02/25/18 07:52 98.3 F 116 H 17 115/91 H 99 02/25/18 04:14 98.6 F 86 16 105/55 L 93 L 02/25/18 03:05 83 Weight Weight 265 lb 4.8 oz I&O: 02/24/18 02/25/18 02/26/18 06:59 06:59 06:59 Intake Total 120 1160 Output Total 0 1125 75 Balance 120 35 -75 Result Diagrams: 02/24/18 05:38 02/24/18 05:38 Phys Exam - Physical Examination Neck: no JVD Respiratory: clear to auscultation bilateral Cardiovascular: irregular Gastrointestinal: soft, positive bowel sounds Musculoskeletal: no edema Dx/Plan (1) Elevated troponin Code(s): R74.8 - ABNORMAL LEVELS OF OTHER SERUM ENZYMES Status: Acute (2) Generalized weakness Code(s): R53.1 - WEAKNESS Status: Acute (3) Atrial fibrillation Code(s): I48.91 - UNSPECIFIED ATRIAL FIBRILLATION Status: Chronic (4) Hypertension Code(s): I10 - ESSENTIAL (PRIMARY) HYPERTENSION Status: Chronic Qualifiers: Hypertension type: essential hypertension Qualified Code(s): I10 - Essential (primary) hypertension (5) Non-ischemic cardiomyopathy Code(s): I42.9 - CARDIOMYOPATHY, UNSPECIFIED Status: Chronic - Plan post failed ablation for Atrial fi -: cont ade, cardiarmandom, coreg -: discuss with Dr Valdes * .
[2018-02-25] MEDS: Colchicine 0.3 MG TAB PO SCH ×2 (12:34→20:37)
--- NOTE | 2018-02-25 15:04 | PRG ---
DATE OF SERVICE: 02/25/2018 ELECTROPHYSIOLOGY FOLLOWUP NOTE SUBJECTIVE: Ms. Parks is experiencing dizziness, lightheadedness, and low blood pressures came to [facility] ER on the and going to be admitted due to atrial fibrillation with RVR, although his initial h eart rates were actually in the 60s. He was still in atypical atrial flutter. He received some rehy dration and was placed back on diltiazem and continues on propafenone. He comes with atrial fibrilla tion with improving rate control. OBJECTIVE: VITAL SIGNS: Blood pressure currently 120/75, heart rate 118, respirations 15, temperature 97.5 degr ees Fahrenheit, blood pressure at home was 132/69, heart rate 106, respiration is 21. GENERAL: He is alert and oriented man in no apparent distress. NECK: Supple. Jugular veins not distended. CHEST: Coarse without crackles. CARDIOVASCULAR: Heart sounds are regular to rate and rhythm. No murmur or gallop. ABDOMEN: Benign. Bowel sounds positive. EXTREMITIES: Lower extremity without edema, clubbing or cyanosis. SKIN: Without rash. Groin sites without major reaction. LABORATORY DATA: White cell count 8.1, hemoglobin 13.1, platelet count is 147. Troponin I is 2.9, 2 .7, 2.348, decreasing trend. Sodium 130, potassium 4.1, BUN 18, creatinine 1.0. DATABASE: EKGs reviewed revealing atypical atrial flutter with variable rate control. Occasional PV Cs are noted. ASSESSMENT AND PLAN: Mr. Parks is a pleasant 67-year-old man with prior history of persistent atrial fibrillation, previously sustained despite propafenone and Multaq. He underwent a redo pulmonary ve nous isolation procedure as well as a left atrial ablation by Dr. Carlisle on 02/22/2018. He did devel op atrial fibrillation, positive from right atrial appendage focus as per his note. He was discharge d home in stable condition. Now he is readmitted mostly because of borderline blood pressures, possi crispin due to over diuresis, but also still in atrial fibrillation with rapid rates. The addition of ex tra diltiazem though his rates are better controlled today. PLAN: At this point, I would continue propafenone possibly on the four times a day regimen as before . After discharge, he could be considered for cardioversion tomorrow, although there is a chance dashawn t this will not hold still. In that case, we will continue rhythm control. We will keep him without food for tomorrow. He is continued on anticoagulation with Eliquis twice a day without a fail since ablation. Thank you again for allowing me to participate in care of this patient.
[2018-02-25] MEDS: Pravastatin Sodium 20 MG TAB PO SCH (20:37)
[2018-02-26 05:38] LABS: Hemoglobin 13.5 g/dL (14.0-18.0); Platelet Count 157 thou/uL (130-400)
[2018-02-26] MEDS: Carvedilol 3.125 MG TAB PO SCH ×2 (08:26→14:00)
[2018-02-26] MEDS: Colchicine 0.3 MG TAB PO SCH ×2 (08:27→22:18)
[2018-02-26] MEDS: Lisinopril 10 MG TAB PO SCH (08:28)
[2018-02-26] MEDS: Apixaban 5 MG TAB PO SCH ×2 (08:28→22:19)
[2018-02-26] MEDS: Propafenone HCl 150 MG TAB PO SCH ×3 (08:28→16:59)
[2018-02-26] MEDS: Multivit, Therapeutic 1 TAB PO SCH (08:28)
--- NOTE | 2018-02-26 09:48 | PDOC.PN ---
- Subjective Encounter Start Date: 02/26/18 Encounter Start Time: 09:46 Subjective: no pain or sob - Objective Resuscitation Status: Resuscitation Status FULL:Full Resuscitation MAR Reviewed: Yes Vital Signs & Weight: Vital Signs (12 hours) Temp Pulse Resp BP BP Pulse Ox 02/26/18 08:28 124/81 02/26/18 08:06 97.4 F L 126 H 16 110/81 100 02/26/18 08:00 97.4 F L 126 H 16 110/81 100 02/26/18 03:10 97.8 F 107 H 16 124/81 96 Weight Weight 267 lb I&O: 02/25/18 02/26/18 02/27/18 06:59 06:59 06:59 Intake Total 1160 1590 Output Total 1125 675 Balance 35 915 Result Diagrams: 02/26/18 05:05 02/26/18 05:05 Phys Exam - Physical Examination Neck: no JVD Respiratory: clear to auscultation bilateral Cardiovascular: no significant murmur, irregular Gastrointestinal: soft, positive bowel sounds Musculoskeletal: no edema Dx/Plan (1) Elevated troponin Code(s): R74.8 - ABNORMAL LEVELS OF OTHER SERUM ENZYMES Status: Acute (2) Generalized weakness Code(s): R53.1 - WEAKNESS Status: Resolved (3) Atrial fibrillation Code(s): I48.91 - UNSPECIFIED ATRIAL FIBRILLATION Status: Chronic (4) Hypertension Code(s): I10 - ESSENTIAL (PRIMARY) HYPERTENSION Status: Chronic Qualifiers: Hypertension type: essential hypertension Qualified Code(s): I10 - Essential (primary) hypertension (5) Non-ischemic cardiomyopathy Code(s): I42.9 - CARDIOMYOPATHY, UNSPECIFIED Status: Chronic - Plan planned DC CV today -: cont rhythmol,anticoag * .
[2018-02-26] MEDS ORDERED: PROPOFOL 200 MG/20 ML VIAL ONE (13:55)
[2018-02-26] MEDS: Sucralfate 1 GM TAB PO SCH ×2 (16:59→22:18)
[2018-02-26] MEDS ORDERED: PROPOFOL 20 ML ONE (17:24)
[2018-02-26] MEDS: Metoprolol Tartrate 25 MG TAB PO SCH ×2 (18:05→23:47)
[2018-02-26] MEDS: Pravastatin Sodium 20 MG TAB PO SCH (22:18)
--- NOTE | 2018-02-26 23:43 | OP ---
[facility] DATE OF SERVICE: 02/26/2018 REASON FOR PROCEDURE: Mr. Parks is a 67-year-old male with history of atrial arrhythmias. He underwent a redo pulmonary venous isolation, left atrial ablation procedure by the [facility] a couple weeks ago. He did develop a recurrent atypical atrial flutter with rapid rates. He is here for cardioversion after reloading with propafenone. The patient has been anticoagulated ever since ablation with Eliquis. PROCEDURE: The patient received propofol by Anesthesia specialist. After adequate level of sedation achieved, repeat shocks at 70, 150, 300, and 360 joules were applied. SR returned only for a beat and then recurrent atrial flutter was seen. CONCLUSION: Unsuccessful cardioversion due to recurrence of atrial fibrillation. PLAN: Continue rate control and long-term re-ablation therapy. FESTUS
[2018-02-27] MEDS: Metoprolol Tartrate 25 MG TAB PO SCH ×2 (05:32→12:43)
--- NOTE | 2018-02-27 08:12 | PDOC.PN ---
- Subjective Encounter Start Date: 02/27/18 Encounter Start Time: 08:11 Subjective: no chest pain, sob - Objective Resuscitation Status: Resuscitation Status FULL:Full Resuscitation Vital Signs & Weight: Vital Signs (12 hours) Temp Pulse Resp BP Pulse Ox 02/27/18 04:00 98.0 F 66 16 109/61 95 02/26/18 22:18 98.3 F 97 16 97 Weight Weight 267 lb 11.2 oz I&O: 02/26/18 02/27/18 02/28/18 06:59 06:59 06:59 Intake Total 1590 650 Output Total 675 900 Balance 915 -250 Result Diagrams: 02/26/18 05:05 02/26/18 05:05 Phys Exam - Physical Examination Neck: no JVD Respiratory: clear to auscultation bilateral Cardiovascular: no significant murmur, irregular Gastrointestinal: soft, positive bowel sounds Musculoskeletal: no edema, pulses present Dx/Plan (1) Elevated troponin Code(s): R74.8 - ABNORMAL LEVELS OF OTHER SERUM ENZYMES Status: Acute (2) Generalized weakness Code(s): R53.1 - WEAKNESS Status: Resolved (3) Atrial fibrillation Code(s): I48.91 - UNSPECIFIED ATRIAL FIBRILLATION Status: Chronic (4) Hypertension Code(s): I10 - ESSENTIAL (PRIMARY) HYPERTENSION Status: Chronic Qualifiers: Hypertension type: essential hypertension Qualified Code(s): I10 - Essential (primary) hypertension (5) Non-ischemic cardiomyopathy Code(s): I42.9 - CARDIOMYOPATHY, UNSPECIFIED Status: Chronic - Plan failed DC CV x4 -: now in AF with CVR -: discuss with cardiology * .
[2018-02-27] MEDS: Sucralfate 1 GM TAB PO SCH ×2 (09:04→14:30)
[2018-02-27] MEDS: Colchicine 0.3 MG TAB PO SCH (09:05)
[2018-02-27] MEDS: Apixaban 5 MG TAB PO SCH (09:05)
[2018-02-27] MEDS: Lisinopril 10 MG TAB PO SCH (09:06)
[2018-02-27] MEDS: Multivit, Therapeutic 1 TAB PO SCH (09:07)
--- NOTE | 2018-02-27 12:59 | PDOC.CTH ---
<Maribell Pavon - Last Filed: 02/27/18 12:54> Cardiology Progress Note - Subjective EP progress ntoe: Patient seen and evaluated. feeling well today, no cardiac complaints/concerns. Denies heart racing, palpitation, or dizziness - Objective Vital Signs Temp Pulse Resp BP Pulse Ox 02/27/18 08:05 98.2 F 86 14 123/68 96 02/27/18 04:00 98.0 F 66 16 109/61 95 Weight 267 lb 11.2 oz 02/26/18 02/27/18 02/28/18 06:59 06:59 06:59 Intake Total 1590 650 Output Total 675 900 Balance 915 -250 - Physical Examination General/Neuro: alert & oriented x3, NAD Neck: carotid US brisk, no JVD present Lungs: CTA, unlabored respirations Heart: PMI normal Abdomen: no HSM, NT/ND, soft - Telemetry Telemetry Rhythm: Atrial flutter/fib CVR - Labs Result Diagrams: 02/26/18 05:05 02/26/18 05:05 Troponin/CKMB CK-MB (CK-2) 4.8 ng/mL (0-6.6) 02/23/18 18:15 Troponin I 2.348 ng/mL (< 0.028) H* 02/24/18 00:27 - Assessment/Plan 1. Persistent atrial fibrillation/flutter s/p redo PVAI last week with early recurrence. Failed DCCV yesterday. Goal of rate control. Stop propafenone. Continue daily diltiazem and metoprolol 25mg QID. take metoprolol if HR >110 and hold if HR <65. 2 week follow up in clinic is requested. 2. Continue oral anticoagulation. continue post ablation colchicine, protonix and carafate, potassium and lasix as ordered. Ok to DC home by EP <Micky Felix - Last Filed: 02/27/18 19:49> Cardiology Progress Note - Objective Vital Signs Temp Pulse Resp BP Pulse Ox 02/27/18 13:05 97.6 F 75 18 122/74 98 02/27/18 08:05 98.2 F 86 14 123/68 96 02/27/18 08:00 97.6 F 75 18 100 Weight 267 lb 11.2 oz 08/02/27/18 02/28/18 06:59 06:59 06:59 Intake Total 1590 650 Output Total 675 900 Balance 915 -250 - Labs Result Diagrams: 02/26/18 05:05 02/26/18 05:05 Troponin/CKMB CK-MB (CK-2) 4.8 ng/mL (0-6.6) 02/23/18 18:15 Troponin I 2.348 ng/mL (< 0.028) H* 02/24/18 00:27 Attending Addendum - Attending Addendum Date/Time: 02/27/181948 I personally evaluated the patient and discussed the management with Ms Pavon. I agree with the History, Examination, Assessment and Plan documented above with any addition or exceptions noted below.
[2018-02-27 13:13] VITALS: BP 122/74; TEMP 97.6
--- NOTE | 2018-02-27 14:47 | DIS ---
DATE OF ADMISSION: 02/23/2018 DATE OF DISCHARGE: 02/27/2018 PRIMARY CARE PROVIDER: Prosper Ortiz M.D. DISCHARGE DISPOSITION: Home. FINAL DIAGNOSES: 1. Atrial fibrillation with rapid ventricular response. 2. Elevated troponins. 3. Chronic anticoagulation. 4. Hypertension. 5. Cardiomyopathy. DISCHARGE MEDICATIONS: Pravastatin 20 mg at bedtime, lisinopril 10 mg a day, diltiazem 180 mg a day, Eliquis 5 mg twice a day, Xanax 0.5 mg p.r.n., Protonix 40 mg a day, metoprolol 25 mg p.o. q.6 hours , hold if pulse less than 60, colchicine 0.3 mg p.o. b.i.d. ALLERGIES: AMIODARONE. DIET: Heart healthy. PENDING AT THE TIME OF DISCHARGE: Nothing. CODE STATUS: FULL. CONSULTATIONS: Dr. Kamran Cleveland and Dr. Micky Felix, Electrophysiology. PROCEDURES: Attempted cardioversion 02/26/2018 failed. HOSPITAL COURSE: Patient admitted to [facility] with generalized weakness. He had a recent procedure ablation which had failed to stop his atrial fibrillation. His troponins were elevated, 2.9, 2.7 and 2.3. Basic metabolic profile was normal except for glucose 142. Liver funct ion test revealed an AST of 39 only. CBC was normal. On 02/25/2018, patient was markedly improved s ymptomatically. Dr. Cleveland saw him in consultation. He was initially had his dose of Rythmol inc reased from 3 times a day to 4 times a day on 02/26/2018. The patient was doing well, was taken to [facility], attempted cardioversion x4 unsuccessful. He was moved back to the unit and put on metop rolol 25 mg p.o. q.6 hours. Today, he is feeling well and wants to go home. Cardiology says it is f ine for him to go home. He is being discharged to be seen in [address] Felix. He needs to be fo llowed up in 2 weeks by his primary care provider, Dr. Ortiz. Medications have been significantly c hanged. He is currently in atrial fibrillation with a controlled rate and normal vital signs.
--- NOTE | 2018-03-02 13:54 | EKG ---
Test Reason : WEAKNESS Blood Pressure : / mmHG Vent. Rate : 072 BPM Atrial Rate : 078 BPM P-R Int : 000 ms QRS Dur : 098 ms QT Int : 412 ms P-R-T Axes : 000 -14 012 degrees QTc Int : 451 ms Undetermined rhythm - Atrial Flutter with variable A-V block - with 3:1 A-V conduction Otherwise normal ECG Confirmed by JOCELYNN PEREZ ([id number]), senior technical editor ISAAC MONZON ([id number] on 03/02/2018 1:53:54 PM Referred By: ANA Confirmed By:JOCELYNN PEREZ
--- NOTE | 2018-03-04 15:28 | PQF ---
[facility] Physician Query Form CARYN CUNNINGHAM JOSÉ RAMIREZDONALD [id number] [id number] [id number] CLINICAL DOCUMENTATION CLARIFICATION FORM: POST DISCHARGE Addendum to original discharge summary date: ____ Late entry note date: __ DATE: 03/04/18 ATTN: DR. GRACE RAMIREZ Please exercise your independent, professional judgment in responding to the clarification form. Clinical indicators are provided on the bottom of this form for your review Please check appropriate box(s): HEART FAILURE: A. TYPE: [ ] Systolic / HFrEF [ ] Diastolic / HFpEF [ ] Combined Systolic / Diastolic B. ACUITY [ ] Acute [ ] Acute on Chronic [ ] Chronic [ ] Other diagnosis [ ] Unable to determine In addition, please specify: Present on Admission (POA): [ ] Yes [ ] No [ ] Unable to determine For continuity of documentation, please document condition throughout progress notes and discharge summary. Thank You. CLINICAL INDICATORS - SIGNS / SYMPTOMS / LABS "systolic dysfunction" Ejection Fraction = 35-40 % RISKS: "Hypertension" TREATMENTS: "continue lasix" Page 1 of 2 Note to Provider: In responding to this query, you must exercise independent clinical judgment. The fact that a query is placed does not imply that any particular answer is desired or expected. Please document your response/ clarification to this query in the patients medical record. Your response should clarify and resolve conflicting, ambiguous, or incomplete information in the health record regarding any significant reportable condition or procedure. ( 2008 [facility] Practice Brief, pg. 5) [employer] does not endorse or approve queries developed by the hospital or its agents and issued through the [employer] Monitor software that are not in accordance with the rules or regulations promulgated by the Centers for Medicare and Medicaid (CMS), Office of [employer] (OIG), or [place] Department of Health and Human Services and [facility] 2008 Practice Brief Managing an Effective Query Process or its updates (Practice Brief). MTDD
== END 2018-02-27 14:52 | disposition home or self-care (01) | DRG 309 ==
LOC: ERS 17:41 → 2SW 22:47 → OBSVTOIN 02-26 16:24
PROVIDERS: ADMIT Hospitalist; ATTEND Hospitalist
PROC: 5A2204Z Restoration of Cardiac Rhythm, Single (ICD-10-PCS; principal; 2018-02-26)
DX: I48.91 Unspecified atrial fibrillation (principal); I50.20 Unspecified systolic (congestive) heart failure; I42.9 Cardiomyopathy, unspecified; I11.0 Hypertensive heart disease with heart failure; Z79.01 Long term (current) use of anticoagulants
CPT/HCPCS: 36415; 71046; 80048; 80053; 82550; 82553; 82565; 83880; 84484; 85014; 85018; 85025; 85049; 92960; 93005; 94760; 96360; A4216; C9113; J2704

== ENCOUNTER 2018-05-03 10:52 | Outpatient (CLI) | payer MEDICARE, OTHER ==
[2018-05-03 12:40] LABS: #Basophils 0.1 thou/uL (0.0-0.2); #Eosinphils 0.3 thou/uL (0.0-0.7); #Lymphocytes 1.9 thou/uL (1.20-3.40); #Monocytes 0.8 thou/uL (0.11-0.59); #Neutrophils 3.1 thou/uL (1.40-6.50); %Basophils 1.8 % (0.0-1.0); %Eosinophils 4.7 % (0.0-10.0); %Lymphocytes 30.8 % (21.0-51.0); %Monocytes 12.1 % (0.0-10.0); %Neutrophils 50.5 % (42.0-75.0); Hemoglobin 15.3 g/dL (14.0-18.0); Mean Corpuscular HGB CONC 32.3 g/dL (32.0-36.0); Mean Corpuscular Hemoglobin 28.8 pg (27.0-31.0); Mean Corpuscular Volume 88.9 fL (78.0-98.0); Mean Platelet Volume 7.9 fL (7.4-10.4); Platelet Count 195 thou/uL (130-400); RBC Distribution Width 12.8 % (11.5-14.5); Red Blood Cell (RBC) Count 5.33 mill/uL (4.70-6.10); White Blood Cell (WBC) Count 6.2 thou/uL (4.8-10.8)
[2018-05-03 12:46] LABS: INR-International Normal Ratio 1.2; PTT 32.5 SEC (22.9-36.1); Prothrombin Time 15.5 SEC (12.0-14.7)
[2018-05-03 13:07] LABS: Anion Gap 12 mmol/L (10-20); BUN (Urea Nitrogen) 13 mg/dL (8.4-25.7); Calc. Creatinine Clearance 0 mL/min (70-130); Calcium 9.3 mg/dL (7.8-10.44); Carbon Dioxide 27 mmol/L (23-31); Chloride 104 mmol/L (98-107); Estimated GFR-MDRD 75; Glucose 123 mg/dL (80-115); Potassium 3.9 mmol/L (3.5-5.1); Sodium 139 mmol/L (136-145)
== END 2018-05-03 10:53 | disposition home or self-care (01) ==
LOC: LABBT 10:52
PROVIDERS: ATTEND Internal Medicine Cardiovascular Disease
DX: Z01.818 Encounter for other preprocedural examination (principal); I48.91 Unspecified atrial fibrillation
CPT/HCPCS: 80048; 85025; 85610; 85730; 93005; 93010

== ENCOUNTER 2018-05-09 08:37 | Observation (INO) | payer MEDICARE, OTHER ==
[2018-05-09] MEDS ORDERED: Heparin 10,000 UNITS/1 ML VIAL ONE ×2 (09:45→12:37)
[2018-05-09] MEDS ORDERED: Lidocaine 1% (PF) 30 ML VIAL ONE (09:45)
[2018-05-09] MEDS ORDERED: Midazolam HCl 2 mg/2 ml Vial ONE (11:05)
[2018-05-09] MEDS ORDERED: Fentanyl 100 MCG/2 ML VIAL ONE ×2 (11:06→14:19)
[2018-05-09] MEDS ORDERED: Isoproterenol 0.2 MG/1 ML AMP ONE (11:36)
[2018-05-09] MEDS ORDERED: Dexamethasone 20 MG/5 ML VIAL ONE (11:53)
[2018-05-09] MEDS ORDERED: Heparin 30,000 units/30 ml VIAL ONE (11:53)
[2018-05-09] MEDS ORDERED: ePHEDrine/0.9% NaCl/PF SYRINGE 50 mg/10 ml ONE (11:53)
[2018-05-09] MEDS ORDERED: PROPOFOL 200 MG/20 ML VIAL ONE (11:53)
[2018-05-09] MEDS ORDERED: Lidocaine 1% PF 5 ML VIAL ONE (11:53)
[2018-05-09] MEDS ORDERED: PHENYLEPHRINE-NS 100 MCG/ML 10 ML SYRINGE ONE (11:53)
[2018-05-09] MEDS ORDERED: Succinylcholine Chloride 20 MG/ML 10 ml SYRINGE FS ONE (11:53)
--- NOTE | 2018-05-09 13:56 | OP ---
DATE OF PROCEDURE: 05/09/2018. PROCEDURES PERFORMED: 1. Comprehensive EP testing with 3D mapping ablation of atrial fibrillation. 2. Intracardiac echocardiography. 3. Transseptal catheterization. [employer] OPERATOR: Jose Carlos Carlisle M.D. ASA CLASSIFICATION: 3. ANESTHESIA: General endotracheal anesthesia per Anesthesiology. ADDITIONAL CARDIAC MEDICATIONS: Isoproterenol 10 mcg per minute infusion. Total heparin given 22,00 0 units. Total protamine given 40 mg. ACUTE COMPLICATIONS: None apparent. METHODS: After informed consent was obtained, the patient was taken to the EP lab in fasting state. Both groins were prepped and draped. Using ultrasound guidance, the right and left femoral veins we re accessed and an 11 Syrian and 8 Syrian sheaths were placed in left groin, two 8 Syrian sheath were placed in right groin. All 8 Syrian sheaths were then replaced by long sheaths for catheter stabili ty. A 20-pole catheter was placed in the left groin advanced up to the coronary sinus. An echo prob e was placed in left groin advanced to the right atrium and right ventricle for imaging. A circular ablation catheter was placed in right groin advanced up to the right atrium. A 3D map was obtained o f the right atrium and the coronary sinus. The patient was then anticoagulated and transseptal wilson terization was performed on two occasions. A 3D map was obtained in the left atrium and a temperatur e probe was placed in the esophagus located next to a location sensor to be visualized on the 3D key ing system. The patient was found to have isolated pulmonary veins from the previous ablation as wel l as the posterior wall. The patient did have an incessant atrial tachycardia arising the left atria l appendage. Isolation was performed of the roof of the left atrium, the septum of the left atrium, the mitral isthmus of the left atrium, the distal coronary sinus and finally the left atrial appendag e. The patient did have a residual atrial tachycardia arising from the proximal CS, which required f inal ablation. Once this was done, the patient maintained in sinus rhythm. Catheter was then withdr awn. Heparin was reversed. Sheaths were pulled. Hemostasis was achieved with collagen closure. RESULTS: 1. HV interval 44 milliseconds. 2. Atrial function. The patient was then in atypical flutter, which organized once ablation of the roof of the left atrium was performed into an atrial tachycardia arising of the left atrial appendage . This did not convert until the appendage was completely isolated at the base. 3. Atrial tachycardia was also seen from the CS, which were ablated and not completely isolated, but was debulked and rendered noninducible. IMPRESSION: Successful repeat ablation to address atrial fibrillation and atypical flutter. This re quired a left atrial appendage isolation. RECOMMENDATION: 1. Continue with oral anticoagulation. 2. Consider left atrial appendage closure given the patient's CHADS-VASc score and high stroke and h igh bleeding risk.
[2018-05-09] MEDS ORDERED: Acetaminophen 325 MG TAB PO PRN (16:31)
[2018-05-09] MEDS ORDERED: ALPRAZolam 0.5 MG TAB PO PRN (16:31)
[2018-05-09] MEDS: Apixaban 5 MG TAB PO SCH (20:30)
[2018-05-09] MEDS ORDERED: Pravastatin Sodium 20 MG TAB PO SCH (21:00)
[2018-05-10 04:54] VITALS: BMI 33.6
[2018-05-10 04:57] VITALS: TEMP 98.2
[2018-05-10 08:05] VITALS: BP 134/74
[2018-05-10] MEDS ORDERED: Lisinopril 10 MG TAB PO SCH (09:00)
[2018-05-10] MEDS: Apixaban 5 MG TAB PO SCH (09:42)
--- NOTE | 2018-05-13 09:29 | DIS ---
DATE OF ADMISSION: 05/09/2018 DATE OF DISCHARGE: 05/10/2018 This is dictated by Maribell Pavon, nurse practitioner. ADMITTING PHYSICIAN: Jose Carlos Carlisle M.D. CONDITION ON DISCHARGE: Stable. FINAL DIAGNOSES: Atypical atrial flutter, atrial tachycardia, persistent atrial fibrillation with ra pid ventricular response. PROCEDURE: Successful redo of left atrial ablation to address atrial fibrillation and atypical flutt er including left atrial appendage isolation and debulking and ablation of the coronary sinus. HISTORY OF PRESENT ILLNESS: Mr. Parks is a very pleasant 67-year-old gentleman with a history of per sistent atrial fibrillation, who underwent prior ablation and redo ablation back in February of this ye ar with Dr. Carlisle. At that time, he had a very extensive ablation, which had to be stopped despite residual atrial flutter recurrences. He had a somewhat difficult postoperative course in February, req uiring cardioversions and antiarrhythmic therapy, but eventually rate control was achieved. Digoxin, metoprolol, and diltiazem as needed. Ultimately, it was already planned that he would require redo ablation, which was performed yesterday. His ablation yesterday was performed by Dr. Carlisle, and his pulmonary veins remained isolated as well as the posterior wall. His atypical atrial flutter was ma pped to the left atrial appendage, which required full isolation and ablation. In addition, isolatio n was performed to the roof of the left atrium, septum of the left atrium, and the mitral isthmus of the left atrium as well as the distal coronary sinus. He had a residual atrial tachycardia arising f rom the proximal CS, which required final ablation. After that point, the patient maintained sinus r hythm and the procedure ended. He has done well post ablation, maintaining sinus rhythm with occasio nal PACs. There has been no tachycardia or recurrences of atrial flutter or atrial fibrillation over night. He has been up and ambulatory in the unit, tolerating p.o. intake, voiding normally. He has not had any issues or problems with his groin site and feels stable to go home today. He denies any heart racing, palpitations, chest pain, pressure, syncope, near syncope, stroke-like symptoms, or ble eding at the groin sites. Bilateral groin sites were closed with Cardiva closure devices. OBJECTIVE: MOST RECENT VITAL SIGNS: Temperature 98.2, heart rate 66, blood pressure 134/74, respirations 16, ox ygen is 98% on room air. GENERAL: He is alert and oriented. His speech is clear. Affect is appropriate. He is well groomed and well nourished. NECK: Supple, without jugular venous distention. HEART: Rate is with occasional ectopy in regularity heard, but largely with a crisp S1 a nd S2. There is no friction rubs or distant heart tones. No concern or suspicion for tamponade. LUNGS: Clear to auscultation bilaterally without wheezes, crackles, or rhonchi. ABDOMEN: Obese, soft, and nontender, without palpable masses. Hepatojugular reflex is negative. EXTREMITIES: Warm and dry to touch without clubbing, cyanosis, or edema. Bilateral groin sites are stable with the postoperative dressings, clean, dry, and intact. There is no palpable hematoma and o nly minimal tenderness at the right groin site. His pulses to bilateral lower extremities are 2+ str hermelinda with good capillary refill less than 3 seconds. His neurologic exam is grossly intact and nonfoc al. DISCHARGE MEDICATIONS: I will resume his home medications without adjustment. Prescriptions have be en sent for, 1. Carafate 1 gram q.i.d. x15 days. 2. Protonix 40 mg daily x30 days. 3. Lasix 40 mg p.o. p.r.n. shortness of breath and swelling of the extremities. 4. Potassium chloride 20 mEq p.o. daily only when taking Lasix. 5. I have also instructed him to change his diltiazem to p.r.n. for elevated heart rate and/or palpi tations. DISCHARGE INSTRUCTIONS: Included in the discharge paperwork, but include no soaking baths or strenuo us activity x1 week. He is to take his medications as prescribed, and a followup appointment is sche duled for 06/16/2018 at 1:45 p.m., which the patient is aware of. He has a contact number for [facility] should any questions or concerns arise over the weekend or before his upcoming amiar ointment. Most importantly, this ablation did include isolation of the left atrial appendage and he will requir e lifelong anticoagulation and Dr. Carlisle's recommendation of strong consideration for Watchman in th e future to address this long-term.
--- NOTE | 2018-05-13 11:41 | EKG ---
Test Reason : Blood Pressure : / mmHG Vent. Rate : 071 BPM Atrial Rate : 071 BPM P-R Int : 202 ms QRS Dur : 100 ms QT Int : 450 ms P-R-T Axes : 072 -06 004 degrees QTc Int : 489 ms Poor data quality, interpretation may be adversely affected Sinus rhythm with occasional Premature ventricular complexes Nonspecific T wave abnormality Prolonged QT Abnormal ECG Confirmed by MANE HYMAN ([id number]) on 05/13/2018 11:40:40 AM Referred By: KARLA Confirmed By:MANE HYMAN
--- NOTE | 2018-05-13 11:45 | EKG ---
Test Reason : Blood Pressure : / mmHG Vent. Rate : 066 BPM Atrial Rate : 066 BPM P-R Int : 188 ms QRS Dur : 098 ms QT Int : 426 ms P-R-T Axes : 064 -13 -04 degrees QTc Int : 446 ms Normal sinus rhythm Normal ECG Confirmed by MANE HYMAN ([id number]) on 05/13/2018 11:44:35 AM Referred By: KARLA Confirmed By:MANE HYMAN
== END 2018-05-10 12:03 | disposition home or self-care (01) ==
LOC: CCL 08:37 → 2SW 11:30
PROVIDERS: ADMIT Internal Medicine Cardiovascular Disease; ATTEND Internal Medicine Cardiovascular Disease
PROC: 4A023FZ Measurement of Cardiac Rhythm, Percutaneous Approach (ICD-10-PCS; principal; 2018-05-09)
PROC: 4A0234Z Measurement of Cardiac Electrical Activity, Percutaneous Approach (ICD-10-PCS; 2018-05-09)
PROC: 02583ZZ Destruction of Conduction Mechanism, Percutaneous Approach (ICD-10-PCS; 2018-05-09)
PROC: 02K83ZZ Map Conduction Mechanism, Percutaneous Approach (ICD-10-PCS; 2018-05-09)
DX: I48.1 Persistent atrial fibrillation (principal); I48.4 Atypical atrial flutter; Z79.01 Long term (current) use of anticoagulants; Z79.899 Other long term (current) drug therapy; Z88.8 Allergy status to other drugs, medicaments and biological substances; Z98.890 Other specified postprocedural states
CPT/HCPCS: 76942; 85347 ×2; 93005 ×2; 93613; 93623; 93655; 93656; 93662; 96374; C1731; C1732 ×3; C1769; G0378; 93010; J1100; J1644; J2001; J2250; J2704; J3010

== ENCOUNTER 2018-11-01 07:37 | Outpatient (CLI) | payer MEDICARE, OTHER ==
--- NOTE | 2018-11-01 08:50 | CT ---
CT ANGIOGRAM CHEST WITH CONTRAST, AND 3-D VOLUME RENDERING CLINICAL INDICATION: Atrial fibrillation. Evaluate for left atrial appendage watchman leak COMPARISON: 07/10/2015 FINDINGS: Pulmonary arteries: No significant filling defect is identified within the pulmonary arteries. Aorta: The aorta is normal in caliber without evidence of an aortic dissection. Heart: There has been interval placement of a watchman occlusion device in the left atrial appendage. Contrast within the left atrium extends to the level of the watchman device, but there is no contrast seen within the left atrial appendage distal to the occlusion device. Lungs: Multiple linear densities are seen at the posterior right lung base with slight reticulonodula r predominance. This was also seen on the study on 11/16/2017. Infectious or inflammatory process is a possibility. No discrete pulmonary nodule or pleural effusion is seen. Mediastinum: No enlarged lymph nodes are seen by CT size criteria. The mediastinal structures otherwi se demonstrate a normal CT appearance and unchanged when compared to prior exam. Thyroid gland: Normal CT appearance. Osseous structures: Mild degenerative changes are seen in the thoracic spine. Upper abdomen: A 1.8 cm low-density lesion is seen in the superior pole left kidney also imaged on pr ior studies and likely represents a small cyst. Remainder of the upper abdomen demonstrates a normal CT appearance for arterial phase of imaging IMPRESSION: 1. No CT evidence of a pulmonary embolus. 2. Thoracic aorta is normal in caliber without evidence of an aortic dissection. 3. Watchman left atrial occlusion device noted in place. No contrast is seen distal to the level of t he occlusion device within the left atrial appendage. 4. Linear densities right lung base with slight reticulonodular appearance; an infectious or inflamma tory process is a possibility.
[2018-11-01] MEDS ORDERED: ISOVUE-370 76%-LOCM 1 ML ONE (11:16)
== END 2018-11-01 07:38 | disposition home or self-care (01) ==
LOC: BICCT 07:37
PROVIDERS: ATTEND Internal Medicine Cardiovascular Disease
DX: I48.91 Unspecified atrial fibrillation (principal); R91.8 Other nonspecific abnormal finding of lung field; Z95.818 Presence of other cardiac implants and grafts
CPT/HCPCS: 71275; 82565; Q9966

== ENCOUNTER 2019-06-13 10:09 | Emergency (ER) | payer MEDICARE, OTHER ==
[2019-06-13 11:09] LABS: #Eosinphils 0.2 thou/uL (0.0-0.7); #Lymphocytes 1.6 thou/uL (1.20-3.40); #Monocytes 0.6 thou/uL (0.11-0.59); #Neutrophils 2.7 thou/uL (1.40-6.50); %Basophils 0.6 % (0.0-1.0); %Eosinophils 3.5 % (0.0-10.0); %Lymphocytes 31.8 % (21.0-51.0); %Monocytes 11.5 % (0.0-10.0); %Neutrophils 52.6 % (42.0-75.0); Hemoglobin 14.6 g/dL (14.0-18.0); Mean Corpuscular Hemoglobin 29.3 pg (27.0-31.0); Mean Corpuscular Volume 88.7 fL (78.0-98.0); Mean Platelet Volume 8.8 fL (7.4-10.4); Platelet Count 182 thou/uL (130-400); RBC Distribution Width 13.1 % (11.5-14.5); Red Blood Cell (RBC) Count 4.98 mill/uL (4.70-6.10); White Blood Cell (WBC) Count 5.1 thou/uL (4.8-10.8)
[2019-06-13 11:29] LABS: ALT (SGPT) 16 U/L (8-55); AST (SGOT) 34 U/L (5-34); Albumin 4.3 g/dL (3.4-4.8); Alkaline Phosphatase 73 U/L (40-110); Anion Gap 10 mmol/L (10-20); BUN (Urea Nitrogen) 12 mg/dL (8.4-25.7); Bilirubin, Total 0.8 mg/dL (0.2-1.2); Calc. Creatinine Clearance 0 mL/min (70-130); Calcium 9.3 mg/dL (7.8-10.44); Carbon Dioxide 27 mmol/L (23-31); Chloride 107 mmol/L (98-107); Estimated GFR-MDRD 65; Globulin 3.4 g/dL (2.4-3.5); Glucose 104 mg/dL (80-115); Magnesium 2.1 mg/dL (1.6-2.6); Potassium 4.8 mmol/L (3.5-5.1); Protein, Total 7.7 g/dL (5.8-8.1); Sodium 139 mmol/L (136-145)
== END 2019-06-13 13:27 | disposition home or self-care (01) ==
LOC: ERS 10:09
DX: R00.8 Other abnormalities of heart beat (principal); I11.0 Hypertensive heart disease with heart failure; I48.91 Unspecified atrial fibrillation; I50.9 Heart failure, unspecified; Z79.899 Other long term (current) drug therapy; Z79.82 Long term (current) use of aspirin
CPT/HCPCS: 80053; 83735; 84443; 84484; 85025; 93005

== ENCOUNTER 2022-01-23 12:28 | Outpatient (CLI) | payer MEDICARE, OTHER | END 2022-01-23 12:29 | disposition home or self-care (01) | LOC: RAD 12:28 | PROVIDERS: ATTEND Internal Medicine | DX: R05.1 Acute cough (principal) | CPT/HCPCS: 71046; 87070; U0003; U0005 ==